=== PATIENT | male | born 1950 | race Caucasian/White ===

== ENCOUNTER → 2018-08-25 | Day surgery (SDC) | payer OTHER ==
[~2018-08-25] MED LIST: FLUOROURACIL IV; IV RINGERS,LACTATED 1000ML 1,000 ML IV SCH; LIDOCAINE 1% PF 2 ML VIAL. ONE; PROC10TA57 PO; PROPOFOL 20 ML IV ONE
[2018-08-25 13:50] VITALS: BP 175/60
--- NOTE | 2018-08-26 17:08 | PATHOLOGY ---
[facility] Accession Number: [id number] . 01 Material submitted: . RECTAL SIGMOID JUNCTION MASS . 01 Clinical history: . Screening . 02 Diagnosis: Colorectal biopsy, rectosigmoid junction mass: - ADENOCARCINOMA, MODERATELY DIFFERENTIATED, ULCERATED. SEE COMMENT. (JPM:pastora; 08/26/2018) QMS/08/26/2018 . 02 Comment: Sections of the rectosigmoid junction mass biopsy focally reveal malignant glands which infiltrate a reactive desmoplastic stroma. There is associated ulceration. 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 The case is also examined by Dr. Palomino, who concurs with the diagnosis. (JPM:pastora; 08/26/2018) . 02 Electronically signed: . Watson Moss MD, Pathologist NPI- [id number] . 01 Gross description: . Received in formalin labeled "[place], rectal sigmoid junction," are multiple segments of quezada soft tissue measuring 1.6 x 0.6 x 0.2 cm in aggregate dimensions. The specimen is filtered and entirely submitted in cassette A1. (TSD; 08/25/2018) TOB/TOB . 02 Pathologist provided ICD-10: C19 . 02 CPT . 321549 Specimen Comment: A courtesy copy of this report has been sent to Specimen Comment: [phone], . Specimen Comment: Report sent to and Specimen Comment: A duplicate report has been generated due to demographic updates. Performed at: [address], [place], [place] [id number] MD Reji Freeman MD Phone: [phone] Performed at: 02 [facility] [address] [place], [place] [id number] MD Watson Moss MD Phone: [phone]
== END | disposition home or self-care (01) ==
LOC: ENDOS 11:59
PROVIDERS: ATTEND Internal Medicine Gastroenterology
DX: C19 Malignant neoplasm of rectosigmoid junction (principal); K64.0 First degree hemorrhoids; Z72.89 Other problems related to lifestyle; Z87.891 Personal history of nicotine dependence
CPT/HCPCS: 45331; 88305; J2704

== ENCOUNTER → 2018-09-21 | Day surgery (SDC) | payer OTHER ==
[~2018-09-21] VITALS: Ht 172.7 cm; Wt 69.9 kg
[~2018-09-21] MED LIST changes: +BUPIVAC MPF-EPI 0.5%-1:200000 30 ML VIAL. ONE; +DEXAMETHASONE SOD PHOS 20 MG/5 ML VIAL. ONE; +HEPARIN SODIUM 5,000 UNIT in IV NORMAL SALINE 500ML BAG 500 ML IRR ONE; +HYDROmorphone 2 MG/ML VIAL IV PRN; +LIDOCAINE 1% PF 2 ML VIAL. ID PRN; -LIDOCAINE 1% PF 2 ML VIAL. ONE; +LIDOCAINE 2% PF 5 ML VIAL. ONE; +MIDAZOLAM HCL/PF 2 MG/2 ML VIAL. ONE; +MORPHINE SULFATE 2 MG/ML VIAL. IV PRN; +ONDANSETRON PF 4 MG/2 ML VIAL. IV PRN; +ONDANSETRON PF 4 MG/2 ML VIAL. ONE; +PROCHLORPERAZINE 10 MG/2 ML VIAL. IV PRN; +SEVOFLURANE 31 TO 60 MINUTES. IH ONE; +ceFAZolin 2GM PREMIX 2 GM/50 ML BAG IV ONE; +ePHEDrine PF IN SALINE 50 MG/10 ML SYRINGE. IV ONE; +fentaNYL PF VIAL 100 MCG/2 ML VIAL IV PRN; +fentaNYL PF VIAL 100 MCG/2 ML VIAL ONE
--- NOTE | 2018-09-21 08:58 | PDOC4 ---
Operative Note Operative Note Operative Note: Preoperative Diagnosis: Rectal cancer Postoperative Diagnosis: Same Procedure: Placement of Power Port-A-Cath using SonoSite guidance Surgeon: Colin Anesthesia: Gen. EBL: 10 mL Specimen: None Drains: None Complications: None Indication: The patient is a 67 year old male who was recently diagnosed with locally advanced rectal cancer. A request was made for placement of a Port-A- Cath to allow for chemotherapy treatment. The details and risks of the procedure were discussed. The risks include bleeding, infection, vessel injury, pneumothorax, pain, anesthetic risk, port, catheter or tubing malfunction or dysfunction, potential need for additional surgery or procedure. The patient understands and would like to proceed. Description: The patient was placed supine on the operating table and general anesthesia was performed. The bilateral neck and chest were prepped with ChloraPrep and draped in a standard surgical manner. With SonoSite ultrasound guidance the right internal jugular vein was readily identified and appeared patent. Entry was made into the vein with the skinny introducer needle under ultrasound guidance. The skinny guidewire passed readily into the central venous system. A small incision was made at the skin exit site. The skinny sheath was then placed over the guidewire. The larger guidewire was then placed within the sheath into the central venous system. Intraoperative fluoroscopy confirmed good position of the guidewire in the central venous system. The dilator and sheath were then placed over the guidewire. The catheter portion was then inserted into the central venous system and visualized using fluoroscopy. A separate right upper chest skin incision was made with a scalpel. A subcutaneous pocket was developed with cautery of sufficient size to accommodate the port. The catheter was then tunneled subcutaneously to the level of the newly formed pocket. Using fluoroscopy the catheter was positioned with the tip in the distal superior vena cava. The catheter was then cut and assembled to the port. The port was then secured to the chest wall with two 2-0 Prolene sutures. Using the Morelos needle the port readily aspirated and flushed without difficulty. Fluoroscopy confirmed good positioning of the catheter with no twists or kinks. The subcutaneous tissue was approximated with 3-0 Vicryl. The skin was then closed with 4-0 Monocryl. A sterile OpSite dressing was then applied. The patient tolerated the procedure well and was sent to the recovery room in stable condition. At the end of the case all counts were correct. BLANCA ADAMES MD Sep 21, 2018 08:58
--- NOTE | 2018-09-21 09:00 | DISCH ---
DISCHARGE INSTRUCTIONS Condition on Discharge Condition on Discharge: Stable Activity After Discharge Activity Instructions for Disc: Resume previous activity Diet after Discharge Diet after Discharge: Regular Wound Incision Care Wound/Incision Care: Other, see below (keep dressing clean and dry) Follow-Up Follow up with: Oncology appointment BLANCA ADAMES MD Sep 21, 2018 09:00
--- NOTE | 2018-09-21 09:52 | RAD ---
EXAM: Chest, single view. HISTORY: Portacatheter placement. COMPARISON: None. FINDINGS: A single view of the chest is obtained. There is a right chest wall port catheter with the tip in the superior cava. There is no pneumothorax. There is mild interstitial prominence without placido congestion or consolidation. No effusion is seen. The heart is normal in size. IMPRESSION: Right port catheter with the tip in the superior vena cava. Electronically signed by: Nicolette Salguero MD (09/21/2018 9:48 AM) [place] [id number]
[2018-09-21 10:19] VITALS: BP 126/68
== END | disposition home or self-care (01) ==
LOC: SURG 06:06
PROVIDERS: ATTEND Surgery
DX: Z45.2 Encounter for adjustment and management of vascular access device (principal); C20 Malignant neoplasm of rectum; Z79.899 Other long term (current) drug therapy; M10.9 Gout, unspecified; Z98.42 Cataract extraction status, left eye; Z98.41 Cataract extraction status, right eye; Z96.1 Presence of intraocular lens; F17.210 Nicotine dependence, cigarettes, uncomplicated; Z72.89 Other problems related to lifestyle; Z98.890 Other specified postprocedural states
CPT/HCPCS: 36561; 71045; 76937; 77001; C1788; J0171; J0696; J1100; J1644; J2001; J2250; J2405; J2704; J3010; J3490; J7040; J7120; 36556

== ENCOUNTER → 2018-10-04 | Outpatient (CLI) | payer OTHER ==
[2018-09-21 10:19] VITALS: BP 126/68
[~2018-10-04] MED LIST changes: -BUPIVAC MPF-EPI 0.5%-1:200000 30 ML VIAL. ONE; -DEXAMETHASONE SOD PHOS 20 MG/5 ML VIAL. ONE; -HEPARIN SODIUM 5,000 UNIT in IV NORMAL SALINE 500ML BAG 500 ML IRR ONE; -HYDROmorphone 2 MG/ML VIAL IV PRN; +IOHEXOL 300 MG/ML 100ML VIAL. IV ONE; -IV RINGERS,LACTATED 1000ML 1,000 ML IV SCH; -LIDOCAINE 1% PF 2 ML VIAL. ID PRN; -LIDOCAINE 2% PF 5 ML VIAL. ONE; -MIDAZOLAM HCL/PF 2 MG/2 ML VIAL. ONE; -MORPHINE SULFATE 2 MG/ML VIAL. IV PRN; -ONDANSETRON PF 4 MG/2 ML VIAL. IV PRN; -ONDANSETRON PF 4 MG/2 ML VIAL. ONE; -PROCHLORPERAZINE 10 MG/2 ML VIAL. IV PRN; -PROPOFOL 20 ML IV ONE; -SEVOFLURANE 31 TO 60 MINUTES. IH ONE; -ceFAZolin 2GM PREMIX 2 GM/50 ML BAG IV ONE; -ePHEDrine PF IN SALINE 50 MG/10 ML SYRINGE. IV ONE; -fentaNYL PF VIAL 100 MCG/2 ML VIAL IV PRN; -fentaNYL PF VIAL 100 MCG/2 ML VIAL ONE
--- NOTE | 2018-10-04 12:54 | RAD ---
CT study of the chest with contrast Clinical indications: Rectal cancer staging. TECHNIQUE: After IV infusion of 75 cc of Omnipaque 300, helical CT scanning of the chest was performed. PQRS compliance Statement One or more of the following individualized dose reduction techniques were utilized for this study: 1. Automated exposure control 2. Adjustment of the mA and/or kV according to patient size 3. Use of iterative reconstruction technique COMPARISON: None available. FINDINGS: No enlarged thoracic lymphadenopathy is evident. No focal aneurysmal dilatation or dissection of the thoracic aorta is seen. Heart size is normal and no pericardial effusion is seen. No pleural effusion or pneumothorax is evident. There is a calcified granuloma of the lateral aspect of the left lower lobe. On image 35 and series 2, there is a small 4 mm lung nodule within the lateral segment of the right middle lobe. No lung consolidation is evident. The proximal bronchial tree is patent. No lytic process is seen. No adrenal mass is evident. The abdomen was recently evaluated on a CT study dated September 01, 2018. IMPRESSION: No thoracic lymphadenopathy. There is a small 4 mm right middle lobe lung nodule. Given the patient's history, recommend a follow-up noncontrast chest CT in 3-4 months. This is indeterminate. No acute lung infiltrate is evident. Electronically signed by: Kishor Mccromack MD (10/04/2018 12:51 PM) [facility]
== END | disposition home or self-care (01) ==
LOC: CT 09:57
PROVIDERS: ATTEND Internal Medicine Hematology & Oncology
DX: R91.1 Solitary pulmonary nodule (principal); J84.10 Pulmonary fibrosis, unspecified; C20 Malignant neoplasm of rectum
CPT/HCPCS: 71260; Q9967; 77290; 77334; 77336; 77387; 77412

== ENCOUNTER 2019-01-11 07:03 | Inpatient (IN) | payer OTHER ==
[~2019-01-11] VITALS: Ht 172.7 cm; Wt 68.0 kg
[2019-01-11] VITALS (10 sets, daily range): BP systolic 116–163; BP diastolic 62–92
[~2019-01-11 07:03] MED LIST changes: +HYDROmorphone 2 MG/ML VIAL IV PRN; -IOHEXOL 300 MG/ML 100ML VIAL. IV ONE; +IV RINGERS,LACTATED 1000ML 1,000 ML IV SCH; +MORPHINE SULFATE 2 MG/ML VIAL. IV PRN; +ONDANSETRON PF 4 MG/2 ML VIAL. IV PRN; +PROCHLORPERAZINE 10 MG/2 ML VIAL. IV PRN; +fentaNYL PF VIAL 100 MCG/2 ML VIAL IV PRN
[2019-01-11] MEDS ORDERED: metroNIDAZOLE 500mg PREMIX 500 MG/100 ML BAG IV ONE (08:00)
[2019-01-11] MEDS ORDERED: ceFAZolin 2GM PREMIX 2 GM/50 ML BAG IV ONE (08:00)
[2019-01-11] MEDS ORDERED: PROPOFOL 20 ML IV ONE (08:09)
[2019-01-11] MEDS ORDERED: fentaNYL PF VIAL 250 MCG/5 ML VIAL ONE (08:09)
[2019-01-11] MEDS ORDERED: DEXAMETHASONE SOD PHOS 4 MG/ML VIAL ONE (08:11)
[2019-01-11] MEDS ORDERED: FAMOTIDINE 20 MG/2 ML VIAL ONE (08:11)
[2019-01-11] MEDS ORDERED: ONDANSETRON PF 4 MG/2 ML VIAL. ONE (08:11)
[2019-01-11] MEDS ORDERED: LIDOCAINE 2% PF 5 ML VIAL. ONE (08:11)
[2019-01-11] MEDS ORDERED: ROCURONIUM 100 MG/10 ML VIAL. ONE (08:12)
[2019-01-11] MEDS ORDERED: MIDAZOLAM HCL/PF 2 MG/2 ML VIAL. ONE (08:43)
[2019-01-11 08:54] LABS: HEMATOCRIT 40.4 % (39.0-53.0); HEMOGLOBIN 13.8 g/dL (13.0-17.5); RED BLOOD COUNT 4.11 x10^6/uL (4.30-5.70); RED CELL DISTRIBUTION WIDTH 14.5 % (11.5-14.5); WHITE BLOOD COUNT 6.3 x10^3/uL (4.0-11.0)
--- NOTE | 2019-01-11 09:17 | PDOC4 ---
OPERATIVE NOTE Date: Date: Jan 11, 2019 Pre-Op Diagnosis: rectal cancer Post-Op Diagnosis: same Procedure Performed: cysto, placement of ureteral caths Surgeon: Lorena Anesthesia Type: gen Blood Loss: min Specimans Obtained: neg Findings: nl bladder, bilobar obstr prostate Complications: neg Operative Note: cysto w 21 Fr cystoscope. Bladder unrem UO's in nl location 5 Fr whistle tipped caths passed thru each UO with no diff Scope removed. ureteral caths attached to carroll in usual fashion. NABILA VINSON MD Jan 11, 2019 09:17
[2019-01-11] MEDS ORDERED: GLYCOPYRROLATE 1 MG/5 ML VIAL. ONE (11:27)
[2019-01-11] MEDS ORDERED: NEOSTIGMINE METHYLSULFATE 5 MG/5 ML SYRINGE. ONE (11:27)
[2019-01-11] MEDS ORDERED: SUGAMMADEX SODIUM 200 MG/2 ML VIAL. IVP ONE (11:45)
[2019-01-11] MEDS ORDERED: fentaNYL PF VIAL 100 MCG/2 ML VIAL ONE ×3 (11:59→12:50)
[2019-01-11] MEDS ORDERED: NALOXONE 0.4 MG/ML VIAL. IV PRN (12:15)
[2019-01-11] MEDS ORDERED: ONDANSETRON PF 4 MG/2 ML VIAL. IV PRN (12:15)
[2019-01-11] MEDS ORDERED: 0.9 % SODIUM CHLORIDE 10 ML DISP.SYRIN. IV PRN (12:15)
--- NOTE | 2019-01-11 12:21 | PDOC4 ---
Operative Note Operative Note Operative Note: Preoperative Diagnosis: Rectal cancer Postoperative Diagnosis: Same Procedure: Low anterior resection, diverting loop ileostomy Surgeon: Colin Audio Tape Librarian: Angelina Fine Anesthesia: Gen. EBL: 25 mL Specimen: Proximal rectum to pathology Drains: Iesha drain to midline wound Complications: None Indication: The patient is a 68-year-old male who was recently diagnosed with rectal cancer. He completed neoadjuvant chemoradiation and is now ready to proceed with surgical treatment. The plan is to attempt a low anterior resection however he understands that an abdominal perineal resection is possible. He is also aware of the potential need for either a diverting loop ileostomy or permanent end colostomy. The risks of surgery were discussed which include bleeding, infection, visceral injury, pain, hernia formation, bowel injury, anesthetic risk, anastomotic leak, potential need for additional surgery or procedure. He understands and would like to proceed. Description: The patient was taken to the operating room where general anesthesia was performed. Ureteral stents were then placed by Dr. Cabrera. The patient was then maintained in lithotomy position. He was prepped and draped in a standard surgical manner. A lower vertical midline incision was made in the skin which was carried above the umbilicus. Cautery dissection was used to open the fashion peritoneum. The Omni retractor was used for the remainder of the case to facilitate exposure. The liver and stomach appeared unremarkable. The small bowel loops appeared normal. There was no evidence of omental or peritoneal abnormalities. In the proximal rectum there was a palpable mass consistent with the known tumor. We began with mobilization of the distal sigmoid colon and rectum. The lateral peritoneal attachments were divided with cautery. The distal sigmoid colon was then divided with a LEELA-75 stapling device. The mesorectum was then dissected. Blood vessels were ligated with 2-0 Vicryl and divided. Care was taken to ensure a complete mesorectal dissection. The LigaSure device assisted with this. The presacral plane was then developed posteriorly well beyond the tumor. Anteriorly the peritoneum was opened the rectum away from the bladder. We continued mobilizing circumferentially freeing the proximal and mid rectum. Both ureters were readily identified and preserved. The LigaSure device again assisted with rectal mobilization. The dissection was carried well beyond the tumor to the distal rectum. The rectum was divided distal to the tumor with a contour stapler, marked with a stitch at the proximal margin, and sent to pathology. Gross pathologic evaluation confirmed the mass present with good margins. An end-to-end anastomosis was then constructed using the EEA 28 mm stapling device. The anvil was placed into the distal sigmoid colon and secured using a pursestring device. The EEA was then inserted transanally by Dr. Mclain. The patient was brought out adjacent to the staple line on the rectum. The stapler was then assembled and deployed creating the anastomosis. Saline was placed in the pelvis and Dr. Mclain introduced air into the rectum to assess for any leak. There was no evidence of any air leak. Hemostasis was good and no other abnormalities were noted. A small circular incision was made in the right lower quadrant for planned diverting ileostomy. With cautery a cruciate incision was made in the fascia and a loop of the distal ileum was was delivered. The peritoneum was approximated with 0 Vicryl. The midline fascia was closed with 1 PDS in a running fashion. Subcutaneous tissue was closed over a Maynard drain in the midline wound with 3-0 Vicryl. The skin was then approximated with 4-0 Monoc ryl. The loop of ileum was then opened and matured to the skin creating a loop ileostomy with interrupted 3-0 Vicryl sutures. An ostomy appliance was placed and sterile dressing applied to the midline wound. The patient tolerated the procedure well and was sent to the recovery room in stable condition. At the end of the case all counts were correct. BLANCA ADAMES MD Jan 11, 2019 12:21
[2019-01-11] MEDS: fentaNYL PF VIAL 100 MCG/2 ML VIAL IV PRN ×2 (12:44→12:56)
[2019-01-11] MEDS: HYDROmorphone 12mg/30ml PCA 30 ML IV PRN (13:26)
[2019-01-11] MEDS ORDERED: BUPIVACAINE MPF 0.5% 30 ML VIAL. ONE (13:34)
[2019-01-11] MEDS ORDERED: DEXAMETHASONE SOD PHOS 20 MG/5 ML VIAL. ONE (13:34)
[2019-01-11] MEDS ORDERED: LIDOCAINE 1% PF 2 ML VIAL. ONE (13:34)
[2019-01-11] MEDS ORDERED: EPINEPHrine 1 MG/ML VIAL ONE (13:34)
[2019-01-11] MEDS: IV NORMAL SALINE 1000ML BAG 1,000 ML IV SCH (15:00)
--- NOTE | 2019-01-11 16:00 | NUR ---
pt arrived to unit at 1420 via bed in stable condition from PACU. pt is rating his pain 10/10 at this time. pt has sister at bedside and call light within reach. pt has [employer] TRACK pump and was re-educated on the use of it. pt is on 3LNC. pt is alert and oriented. carroll catheter is in place and putting out pink tinged urine. dressing is CDI with ileostomy just to the right of midline incision. ostomy putting out serosanguinous fluid. received report from LINDA Luna in PACU. will continue to monitor.
[2019-01-11] MEDS: POTASSIUM CL 20MEQ D5-0.45NACL 1,000 ML IV SCH (17:04)
[2019-01-11] MEDS: ENOXAPARIN 40 MG/0.4 ML SYRINGE. SQ SCH (22:00)
[2019-01-12] MEDS: POTASSIUM CL 20MEQ D5-0.45NACL 1,000 ML IV SCH ×3 (02:15→20:46)
[2019-01-12 03:00] VITALS: BP 130/66
--- NOTE | 2019-01-12 07:19 | NUR ---
Patient becoming irritable and restless. "when can I get rid of these tubes?" Co2 turned off per pt request as it keeps him awake. Patient also refused labs. "the dr didn't ask me." "I think I'm ready to go on home."
[2019-01-12 07:39] VITALS: BP 121/59
--- NOTE | 2019-01-12 09:33 | PDOC ---
EDUARDO LA APRN 01/12/19 0933: SURGICAL PROGRESS NOTE Subjective pain managed no emesis asking about when can eat and go home Vital Signs Vital Signs Date Time Temp Pulse Resp B/P (MAP) Pulse Ox O2 Delivery O2 Flow Rate FiO2 01/12/19 07:39 98.3 67 16 121/59 (79) 98 Nasal Cannula 3.0 98.3 I&O Intake and Output 01/12/19 06:59 Intake Total 1975 ml Output Total 1550 ml Balance 425 ml Intake Oral 0 ml IV Total 1000 ml Blood Product IV Normal Saline Flush 975 ml Output Urine Total 1500 ml Stool Total 0 ml Estimated Blood Loss 50 ml PATIENT HAS A CARROLL: Yes General: Alert, Oriented X3, Cooperative, No acute distress Abdomen: Soft, Other (dressing dry, stoma pink) Labs Laboratory Tests Test 01/11/19 07:50 White Blood Count 6.3 x10^3/uL (4.0-11.0) Red Blood Count 4.11 x10^6/uL (4.30-5.70) Hemoglobin 13.8 g/dL (13.0-17.5) Hematocrit 40.4 % (39.0-53.0) Mean Corpuscular Volume 98 fL (79-100) Mean Corpuscular Hemoglobin 34 pg (25-35) Mean Corpuscular Hemoglobin Concent 34 g/dL (31-37) Red Cell Distribution Width 14.5 % (11.5-14.5) Platelet Count 247 x10^3/uL (140-400) Assessment/Plan s/p LAR, diverting loop ileostomy await bowel function ambulate DC carroll tomorrow BLANCA ADAMES MD 01/12/19 1145: SURGICAL PROGRESS NOTE Assessment/Plan Agree with above EDUARDO LA APRN Jan 12, 2019 09:33 BLANCA ADAMES MD Jan 12, 2019 11:45
[2019-01-12 10:07] LABS: BASO % 0 % (0-3); EOS % 0 % (0-3); HEMATOCRIT 41.8 % (39.0-53.0); HEMOGLOBIN 13.9 g/dL (13.0-17.5); LYMPH # 0.4 x10^3/uL (1.0-4.8); LYMPH % 2 % (24-48); MEAN CORPUSCULAR HEMOGLOBIN 33 pg (25-35); MEAN CORPUSCULAR HGB CONC 33 g/dL (31-37); MEAN CORPUSCULAR VOLUME 99 fL (79-100); MONO # 1.1 x10^3/uL (0.0-1.1); MONO % 6 % (0-9); NEUT # 16.3 x10^3/uL (1.8-7.7); NEUT % 92 % (31-73); PLATELET COUNT 260 x10^3/uL (140-400); RED BLOOD COUNT 4.21 x10^6/uL (4.30-5.70); RED CELL DISTRIBUTION WIDTH 14.1 % (11.5-14.5); WHITE BLOOD COUNT 17.8 x10^3/uL (4.0-11.0)
[2019-01-12 10:20] LABS: CALCIUM 8.6 mg/dL (8.5-10.1); CREATININE 1.1 mg/dL (0.7-1.3); GFR 66.4
[2019-01-12 10:58] VITALS: BP 111/75
[2019-01-12 11:27] LABS: % BANDS 5 % (0-9); % BASOS 2 % (0-3); % LYMPHS 3 % (24-48); % MONOS 4 % (0-10); % SEGS 86 % (35-66); PLT ESTIMATE ADEQUATE (ADEQUATE)
--- NOTE | 2019-01-12 11:38 | NUR ---
Spoke with TALIA Avitia regarding request of removal of lines-carroll catheter & IVF, she will speak with Dr. Shaw
[2019-01-12] MEDS: IV NORMAL SALINE 1000ML BAG 1,000 ML IV SCH (15:00)
[2019-01-12 15:14] VITALS: BP 117/63
--- NOTE | 2019-01-12 17:35 | RAD ---
EXAM: Supine AP view of the abdomen DATE: 01/11/2019 12:00 AM INDICATION: Low anterior resection. COMPARISON: No Prior FINDINGS/ IMPRESSION: 1. Single AP view of the abdomen demonstrates anastomotic suture line in the lower pelvis. 2. Curvilinear density in the pelvis may represent PAVEL type drain or lap band or be overlying the patient. This can be correlated with surgical counts and repeat radiographs can be obtained as clinically indicated. Findings of possible retained lap sponge, drain or external, overlying structure in the pelvis discussed with patient's nurse Karen at 5:30 PM 01/12/2019 Electronically signed by: Brandon Wilkerson MD (01/12/2019 5:32 PM) [facility]
[2019-01-12 19:15] VITALS: BP 135/77
[2019-01-12] MEDS: ENOXAPARIN 40 MG/0.4 ML SYRINGE. SQ SCH (20:47)
[2019-01-12] MEDS: diphenhydrAMINE 50 MG/ML VIAL IVP PRN (22:04)
[2019-01-12 23:03] VITALS: BP 116/53
[2019-01-13 03:14] VITALS: BP 124/64
[2019-01-13] MEDS: POTASSIUM CL 20MEQ D5-0.45NACL 1,000 ML IV SCH ×2 (06:24→16:52)
[2019-01-13 07:00] VITALS: BP 122/65
--- NOTE | 2019-01-13 08:45 | PDOC ---
EDUARDO LA COMPENSATION VICE PRESIDENT 01/13/19 0844: SURGICAL PROGRESS NOTE Subjective had some RLQ pain this AM--improved now no n/v Vital Signs Vital Signs Date Time Temp Pulse Resp B/P (MAP) Pulse Ox O2 Delivery O2 Flow Rate FiO2 01/13/19 07:20 Room Air 01/13/19 07:00 98.7 72 18 122/65 (84) 94 98.7 01/12/19 07:39 3.0 I&O Intake and Output 01/13/19 06:59 Output Total 3350 ml Balance -3350 ml Output Urine Total 3350 ml PATIENT HAS A JAMESON: Yes (dc today) General: Alert, Oriented X3, Cooperative, No acute distress Abdomen: Soft, Other (incision c/d/i, no erythema, jose alejandro in place, ostomy with stool) Labs Laboratory Tests Test 01/12/19 09:45 White Blood Count 17.8 x10^3/uL (4.0-11.0) Red Blood Count 4.21 x10^6/uL (4.30-5.70) Hemoglobin 13.9 g/dL (13.0-17.5) Hematocrit 41.8 % (39.0-53.0) Mean Corpuscular Volume 99 fL (79-100) Mean Corpuscular Hemoglobin 33 pg (25-35) Mean Corpuscular Hemoglobin Concent 33 g/dL (31-37) Red Cell Distribution Width 14.1 % (11.5-14.5) Platelet Count 260 x10^3/uL (140-400) Neutrophils (%) (Auto) 92 % (31-73) Lymphocytes (%) (Auto) 2 % (24-48) Monocytes (%) (Auto) 6 % (0-9) Eosinophils (%) (Auto) 0 % (0-3) Basophils (%) (Auto) 0 % (0-3) Neutrophils # (Auto) 16.3 x10^3/uL (1.8-7.7) Lymphocytes # (Auto) 0.4 x10^3/uL (1.0-4.8) Monocytes # (Auto) 1.1 x10^3/uL (0.0-1.1) Eosinophils # (Auto) 0.0 x10^3/uL (0.0-0.7) Basophils # (Auto) 0.0 x10^3/uL (0.0-0.2) Segmented Neutrophils % 86 % (35-66) Band Neutrophils % 5 % (0-9) Lymphocytes % 3 % (24-48) Monocytes % 4 % (0-10) Basophils % 2 % (0-3) Platelet Estimate Adequate (ADEQUATE) Sodium Level 138 mmol/L (136-145) Potassium Level 4.0 mmol/L (3.5-5.1) Chloride Level 102 mmol/L (98-107) Carbon Dioxide Level 27 mmol/L (21-32) Anion Gap 9 (6-14) Blood Urea Nitrogen 9 mg/dL (8-26) Creatinine 1.1 mg/dL (0.7-1.3) Estimated GFR (Cockcroft-Gault) 66.4 Glucose Level 143 mg/dL (70-99) Calcium Level 8.6 mg/dL (8.5-10.1) Laboratory Tests Test 01/12/19 09:45 White Blood Count 17.8 x10^3/uL (4.0-11.0) Red Blood Count 4.21 x10^6/uL (4.30-5.70) Hemoglobin 13.9 g/dL (13.0-17.5) Hematocrit 41.8 % (39.0-53.0) Mean Corpuscular Volume 99 fL (79-100) Mean Corpuscular Hemoglobin 33 pg (25-35) Mean Corpuscular Hemoglobin Concent 33 g/dL (31-37) Red Cell Distribution Width 14.1 % (11.5-14.5) Platelet Count 260 x10^3/uL (140-400) Neutrophils (%) (Auto) 92 % (31-73) Lymphocytes (%) (Auto) 2 % (24-48) Monocytes (%) (Auto) 6 % (0-9) Eosinophils (%) (Auto) 0 % (0-3) Basophils (%) (Auto) 0 % (0-3) Neutrophils # (Auto) 16.3 x10^3/uL (1.8-7.7) Lymphocytes # (Auto) 0.4 x10^3/uL (1.0-4.8) Monocytes # (Auto) 1.1 x10^3/uL (0.0-1.1) Eosinophils # (Auto) 0.0 x10^3/uL (0.0-0.7) Basophils # (Auto) 0.0 x10^3/uL (0.0-0.2) Segmented Neutrophils % 86 % (35-66) Band Neutrophils % 5 % (0-9) Lymphocytes % 3 % (24-48) Monocytes % 4 % (0-10) Basophils % 2 % (0-3) Platelet Estimate Adequate (ADEQUATE) Sodium Level 138 mmol/L (136-145) Potassium Level 4.0 mmol/L (3.5-5.1) Chloride Level 102 mmol/L (98-107) Carbon Dioxide Level 27 mmol/L (21-32) Anion Gap 9 (6-14) Blood Urea Nitrogen 9 mg/dL (8-26) Creatinine 1.1 mg/dL (0.7-1.3) Estimated GFR (Cockcroft-Gault) 66.4 Glucose Level 143 mg/dL (70-99) Calcium Level 8.6 mg/dL (8.5-10.1) Assessment/Plan s/p LAR, diverting ileostomy some bowel function, will start clears BLANAC ADAMES MD 01/13/19 1250: SURGICAL PROGRESS NOTE Assessment/Plan Agree with above EDUARDO LA APRN Jan 13, 2019 08:44 BLANCA ADAMES MD Jan 13, 2019 12:50
[2019-01-13] MEDS: HYDROmorphone 12mg/30ml PCA 30 ML IV PRN (09:05)
--- NOTE | 2019-01-13 13:56 | NUR ---
SS following for discharge planning. SS reviewed pt chart. Pt is from home and is currently on room air. PT/OT recommending home with home healthcare at discharge. SS will continue to follow for discharge planning.
--- NOTE | 2019-01-13 14:45 | NUR ---
Wound/Ostomy Care Stopped by to set up pt's ostomy teaching for early next week, and upon assessment of current bag and stoma site, noticed stool leaking onto surgical incision and dressing, and onto gown. It was then decided that ostomy teaching would take place now, as the bag needed to be removed and pt stated he didn't need anyone else to go through the teaching with him, as he would be changing his own bags. Returned with supplies and Ostomy educational materials from [facility], assisted pt back into bed from chair. Education reviewed, including how to measure and cut the appliances, dietary modifications, skin care, etc. Current bag removed, skin cleaned with water and washcloths, and new ostomy bag cut to fit stoma. Periwound skin pink and intact, stoma is beefy red and protruding nicely, applied a 2 piece flat bag and appliance. Surgical dressing removed, incision cleaned, and distal incision with Arnett drain covered with gauze and tape. Pt agitated that he cannot walk around freely and asked why he was on a chair alarm. Assisted pt to restroom, then ambulated with pt in the halls and around his unit, assisted back to bed. Will f/u on Wednesday, and will enroll pt into [facility] at that time, as pt stated he may be moving next week. POC discussed with LINDA Rae.
[2019-01-13 15:00] VITALS: BP 103/55
[2019-01-13] MEDS: IV NORMAL SALINE 1000ML BAG 1,000 ML IV SCH (15:00)
[2019-01-13 19:00] VITALS: BP 121/68
[2019-01-13] MEDS: ENOXAPARIN 40 MG/0.4 ML SYRINGE. SQ SCH (22:27)
[2019-01-13 23:00] VITALS: BP 118/61
[2019-01-14 02:51] VITALS: BP_SYST 120; BP_SYST 127; BP_DIAS 68; BP_DIAS 73
[2019-01-14] MEDS: POTASSIUM CL 20MEQ D5-0.45NACL 1,000 ML IV SCH ×3 (02:52→23:53)
[2019-01-14 07:00] VITALS: BP 120/76
[2019-01-14 11:00] VITALS: BP 134/60
--- NOTE | 2019-01-14 13:08 | PDOC ---
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 Medications Current Medications Ondansetron HCl (Zofran) 4 mg PRN Q6HRS PRN IV NAUSEA/VOMITING; Start 01/11/19 at 07:00; Stop 01/11/19 at 21:00; Status DC Fentanyl Citrate (Fentanyl 2ml Vial) 25 mcg PRN Q5MIN PRN IV MILD PAIN 1-3; Start 01/11/19 at 07:00; Stop 01/11/19 at 21:00; Status DC Fentanyl Citrate (Fentanyl 2ml Vial) 50 mcg PRN Q5MIN PRN IV MODERATE TO SEVERE PAIN Last administered on 01/11/19at 12:56; Start 01/11/19 at 07:00; Stop 01/11/19 at 21:00; Status DC Morphine Sulfate (Morphine Sulfate) 1 mg PRN Q10MIN PRN IV SEVERE PAIN 7-10; Start 01/11/19 at 07:00; Stop 01/11/19 at 21:00; Status DC Ringer's Solution 1,000 ml @ 30 mls/hr Q24H IV Last administered on 01/11/19at 07:44; Start 01/11/19 at 07:00; Stop 01/11/19 at 18:59; Status DC Hydromorphone HCl (Dilaudid) 0.5 mg PRN Q10MIN PRN IV SEV PAIN, Second choice; Start 01/11/19 at 07:00; Stop 01/11/19 at 21:00; Status DC Prochlorperazine Edisylate (Compazine) 5 mg PACU PRN PRN IV NAUSEA, MRX1; Start 01/11/19 at 07:00; Stop 01/11/19 at 21:00; Status DC Metronidazole 100 ml @ 100 mls/hr 1X PREOP PRN IV PRE-OP; Start 01/11/19 at 07:48; Stop 01/11/19 at 15:00; Status DC Cefazolin Sodium/ Dextrose 50 ml @ 100 mls/hr 1X PREOP PRN IV PRE-OP; Start 01/11/19 at 07:48; Stop 01/11/19 at 15:00; Status DC Propofol 20 ml @ As Directed STK-MED ONCE IV ; Start 01/11/19 at 08:09; Stop 01/11/19 at 08:10; Status DC Fentanyl Citrate (Fentanyl 5ml Vial) 250 mcg STK-MED ONCE .ROUTE ; Start 01/11/19 at 08:09; Stop 01/11/19 at 08:10; Status DC Lidocaine HCl (Lidocaine Pf 2% Vial) 5 ml STK-MED ONCE .ROUTE ; Start 01/11/19 at 08:11; Stop 01/11/19 at 08:12; Status DC Dexamethasone Sodium Phosphate (Decadron) 4 mg STK-MED ONCE .ROUTE ; Start 01/11/19 at 08:11; Stop 01/11/19 at 08:12; Status DC Famotidine (Pepcid Vial) 20 mg STK-MED ONCE .ROUTE ; Start 01/11/19 at 08:11; Stop 01/11/19 at 08:12; Status DC Ondansetron HCl (Zofran) 4 mg STK-MED ONCE .ROUTE ; Start 01/11/19 at 08:11; Stop 01/11/19 at 08:12; Status DC Rocuronium [place] (Zemuron) 100 mg STK-MED ONCE .ROUTE ; Start 01/11/19 at 08:12; Stop 01/11/19 at 08:13; Status DC Midazolam HCl (Versed) 2 mg STK-MED ONCE .ROUTE ; Start 01/11/19 at 08:43; Stop 01/11/19 at 08:44; Status DC Neostigmine Methylsulfate (Neostigmine Methylsulfate) 5 mg STK-MED ONCE .ROUTE ; Start 01/11/19 at 11:27; Stop 01/11/19 at 11:28; Status DC Glycopyrrolate (Robinul) 1 mg STK-MED ONCE .ROUTE ; Start 01/11/19 at 11:27; Stop 01/11/19 at 11:28; Status DC Sugammadex Sodium (Bridion) 200 mg 1X ONCE IVP ; Start 01/11/19 at 11:45; Stop 01/11/19 at 11:46; Status DC Fentanyl Citrate (Fentanyl 2ml Vial) 100 mcg STK-MED ONCE .ROUTE ; Start 01/11/19 at 11:59; Stop 01/11/19 at 12:00; Status DC Fentanyl Citrate (Fentanyl 2ml Vial) 100 mcg STK-MED ONCE .ROUTE ; Start 01/11/19 at 12:00; Stop 01/11/19 at 12:01; Status DC Enoxaparin Sodium (Lovenox 40mg Syringe) 40 mg Q24H SQ Last administered on 01/13/19at 22:27; Start 01/11/19 at 22:00 Sodium Chloride (Normal Saline Flush) 3 ml QSHIFT PRN IV AFTER MEDS AND BLOOD DRAWS; Start 01/11/19 at 12:15 Potassium Chloride/Dextrose/ Sod Cl 1,000 ml @ 100 mls/hr Q10H IV Last administered on 01/14/19at 02:52; Start 01/11/19 at 15:00 Naloxone HCl (Narcan) 0.4 mg PRN Q2MIN PRN IV SEE INSTRUCTIONS; Start 01/11/19 at 12:15 Sodium Chloride 1,000 ml @ 25 mls/hr Q24H IV ; Start 01/11/19 at 15:00 Hydromorphone HCl 30 ml @ 0 mls/hr CONT PRN PRN IV PER PROTOCOL Last administered on 01/13/19at 09:05; Start 01/11/19 at 12:30 Ondansetron HCl (Zofran) 4 mg PRN Q6HRS PRN IV NAUESA, 1ST CHOICE Last administered on 01/11/19at 15:15; Start 01/11/19 at 12:15 Fentanyl Citrate (Fentanyl 2ml Vial) 100 mcg STK-MED ONCE .ROUTE ; Start 01/11/19 at 12:50; Stop 01/11/19 at 12:51; Status DC Dexamethasone Sodium Phosphate (Decadron) 20 mg STK-MED ONCE .ROUTE ; Start 01/11/19 at 13:34; Stop 01/11/19 at 13:35; Status DC Bupivacaine HCl (Sensorcaine Mpf 0.5%) 30 ml STK-MED ONCE .ROUTE ; Start 01/11/19 at 13:34; Stop 01/11/19 at 13:35; Status DC Epinephrine HCl (Adrenalin) 1 mg STK-MED ONCE .ROUTE ; Start 01/11/19 at 13:34; Stop 01/11/19 at 13:35; Status DC Lidocaine HCl (Xylocaine-Mpf 1% 2ml Vial) 2 ml STK-MED ONCE .ROUTE ; Start 01/11/19 at 13:34; Stop 01/11/19 at 13:35; Status DC Metronidazole (FLAGYL 500Mmg PREMIX) 500 mg STK-MED ONCE IV ; Start 01/11/19 at 08:00; Stop 01/12/19 at 08:16; Status DC Cefazolin Sodium/ Dextrose (Ancef 2gm Premix) 2 gm STK-MED ONCE IV ; Start 01/11/19 at 08:00; Stop 01/12/19 at 12:10; Status DC Diphenhydramine HCl (Benadryl) 12.5 mg PRN Q6HRS PRN IVP ITCHING Last administered on 01/12/19at 22:04; Start 01/12/19 at 21:00 Active Scripts Active Reported Compazine (Prochlorperazine Maleate) 10 Mg Tablet 10 Mg PO Q6HRS PRN Vitals/I & O Vital Sign - Last 24 Hours 01/13/19 01/13/19 01/13/19 01/13/19 15:00 19:00 20:00 23:00 Temp 98.9 97.8 98.2 98.9 97.8 98.2 Pulse 74 73 66 Resp 18 18 18 B/P (MAP) 103/55 (71) 121/68 (85) 118/61 (80) Pulse Ox 95 93 94 O2 Delivery Room Air Room Air Room Air Room Air 01/14/19 01/14/19 01/14/19 02:51 07:00 11:00 Temp 97.7 98.1 98.7 97.7 98.1 98.7 Pulse 75 71 75 Resp 16 16 18 B/P (MAP) 120/68 (85) 120/76 (91) 134/60 (84) Pulse Ox 93 97 98 O2 Delivery Room Air Room Air Room Air Intake and Output 01/13/19 01/13/19 01/14/19 15:00 23:00 07:00 Intake Total 200 ml Output Total 500 ml Balance -300 ml BLANCA ADAMES MD Jan 14, 2019 13:08
[2019-01-14] MEDS: IV NORMAL SALINE 1000ML BAG 1,000 ML IV SCH (15:00)
[2019-01-14 19:00] VITALS: BP 111/59
[2019-01-14] MEDS: diphenhydrAMINE 50 MG/ML VIAL IVP PRN (20:35)
[2019-01-14] MEDS: ENOXAPARIN 40 MG/0.4 ML SYRINGE. SQ SCH (20:35)
[2019-01-14 23:00] VITALS: BP 131/67
[2019-01-15 02:54] VITALS: BP 115/82
[2019-01-15 07:00] VITALS: BP 124/58
--- NOTE | 2019-01-15 09:14 | PDOC ---
PROGRESS NOTES Subjective Subjective struggling emotionally with being in the hospital; physically doing well Objective Objective Vital Signs Date Time Temp Pulse Resp B/P (MAP) Pulse Ox O2 Delivery O2 Flow Rate FiO2 01/15/19 08:00 Room Air 01/15/19 07:00 98.0 56 16 124/58 (80) 96 98.0 01/14/19 20:01 3.0 Intake and Output 01/15/19 06:59 Intake Total 240 ml Output Total 50 ml Balance 190 ml Intake Oral 240 ml Stool Total 50 ml # Voids 5 Physical Exam Abdomen: Soft (robust ileostomy output) Assessment Assessment S/P LAR, loop ileostomy Plan Plan of Care advance diet, PO pain meds, DC sr. manager corporate communications Comment Review of Relevant I have reviewed the following items abigail (where applicable) has been applied. Medications Current Medications Ondansetron HCl (Zofran) 4 mg PRN Q6HRS PRN IV NAUSEA/VOMITING; Start 01/11/19 at 07:00; Stop 01/11/19 at 21:00; Status DC Fentanyl Citrate (Fentanyl 2ml Vial) 25 mcg PRN Q5MIN PRN IV MILD PAIN 1-3; Start 01/11/19 at 07:00; Stop 01/11/19 at 21:00; Status DC Fentanyl Citrate (Fentanyl 2ml Vial) 50 mcg PRN Q5MIN PRN IV MODERATE TO SEVERE PAIN Last administered on 01/11/19at 12:56; Start 01/11/19 at 07:00; Stop 01/11/19 at 21:00; Status DC Morphine Sulfate (Morphine Sulfate) 1 mg PRN Q10MIN PRN IV SEVERE PAIN 7-10; Start 01/11/19 at 07:00; Stop 01/11/19 at 21:00; Status DC Ringer's Solution 1,000 ml @ 30 mls/hr Q24H IV Last administered on 01/11/19at 07:44; Start 01/11/19 at 07:00; Stop 01/11/19 at 18:59; Status DC Hydromorphone HCl (Dilaudid) 0.5 mg PRN Q10MIN PRN IV SEV PAIN, Second choice; Start 01/11/19 at 07:00; Stop 01/11/19 at 21:00; Status DC Prochlorperazine Edisylate (Compazine) 5 mg PACU PRN PRN IV NAUSEA, MRX1; Start 01/11/19 at 07:00; Stop 01/11/19 at 21:00; Status DC Metronidazole 100 ml @ 100 mls/hr 1X PREOP PRN IV PRE-OP; Start 01/11/19 at 07:48; Stop 01/11/19 at 15:00; Status DC Cefazolin Sodium/ Dextrose 50 ml @ 100 mls/hr 1X PREOP PRN IV PRE-OP; Start 01/11/19 at 07:48; Stop 01/11/19 at 15:00; Status DC Propofol 20 ml @ As Directed STK-MED ONCE IV ; Start 01/11/19 at 08:09; Stop 01/11/19 at 08:10; Status DC Fentanyl Citrate (Fentanyl 5ml Vial) 250 mcg STK-MED ONCE .ROUTE ; Start 01/11/19 at 08:09; Stop 01/11/19 at 08:10; Status DC Lidocaine HCl (Lidocaine Pf 2% Vial) 5 ml STK-MED ONCE .ROUTE ; Start 01/11/19 at 08:11; Stop 01/11/19 at 08:12; Status DC Dexamethasone Sodium Phosphate (Decadron) 4 mg STK-MED ONCE .ROUTE ; Start 01/11/19 at 08:11; Stop 01/11/19 at 08:12; Status DC Famotidine (Pepcid Vial) 20 mg STK-MED ONCE .ROUTE ; Start 01/11/19 at 08:11; Stop 01/11/19 at 08:12; Status DC Ondansetron HCl (Zofran) 4 mg STK-MED ONCE .ROUTE ; Start 01/11/19 at 08:11; Stop 01/11/19 at 08:12; Status DC Rocuronium [place] (Zemuron) 100 mg STK-MED ONCE .ROUTE ; Start 01/11/19 at 08:12; Stop 01/11/19 at 08:13; Status DC Midazolam HCl (Versed) 2 mg STK-MED ONCE .ROUTE ; Start 01/11/19 at 08:43; Stop 01/11/19 at 08:44; Status DC Neostigmine Methylsulfate (Neostigmine Methylsulfate) 5 mg STK-MED ONCE .ROUTE ; Start 01/11/19 at 11:27; Stop 01/11/19 at 11:28; Status DC Glycopyrrolate (Robinul) 1 mg STK-MED ONCE .ROUTE ; Start 01/11/19 at 11:27; Stop 01/11/19 at 11:28; Status DC Sugammadex Sodium (Bridion) 200 mg 1X ONCE IVP ; Start 01/11/19 at 11:45; Stop 01/11/19 at 11:46; Status DC Fentanyl Citrate (Fentanyl 2ml Vial) 100 mcg STK-MED ONCE .ROUTE ; Start 01/11/19 at 11:59; Stop 01/11/19 at 12:00; Status DC Fentanyl Citrate (Fentanyl 2ml Vial) 100 mcg STK-MED ONCE .ROUTE ; Start 01/11/19 at 12:00; Stop 01/11/19 at 12:01; Status DC Enoxaparin Sodium (Lovenox 40mg Syringe) 40 mg Q24H SQ Last administered on 01/14/19at 20:35; Start 01/11/19 at 22:00 Sodium Chloride (Normal Saline Flush) 3 ml QSHIFT PRN IV AFTER MEDS AND BLOOD DRAWS; Start 01/11/19 at 12:15 Potassium Chloride/Dextrose/ Sod Cl 1,000 ml @ 100 mls/hr Q10H IV Last administered on 01/14/19at 23:53; Start 01/11/19 at 15:00 Naloxone HCl (Narcan) 0.4 mg PRN Q2MIN PRN IV SEE INSTRUCTIONS; Start 01/11/19 at 12:15 Sodium Chloride 1,000 ml @ 25 mls/hr Q24H IV ; Start 01/11/19 at 15:00 Hydromorphone HCl 30 ml @ 0 mls/hr CONT PRN PRN IV PER PROTOCOL Last administered on 01/13/19at 09:05; Start 01/11/19 at 12:30 Ondansetron HCl (Zofran) 4 mg PRN Q6HRS PRN IV NAUESA, 1ST CHOICE Last administered on 01/11/19at 15:15; Start 01/11/19 at 12:15 Fentanyl Citrate (Fentanyl 2ml Vial) 100 mcg STK-MED ONCE .ROUTE ; Start 01/11/19 at 12:50; Stop 01/11/19 at 12:51; Status DC Dexamethasone Sodium Phosphate (Decadron) 20 mg STK-MED ONCE .ROUTE ; Start 01/11/19 at 13:34; Stop 01/11/19 at 13:35; Status DC Bupivacaine HCl (Sensorcaine Mpf 0.5%) 30 ml STK-MED ONCE .ROUTE ; Start 01/11/19 at 13:34; Stop 01/11/19 at 13:35; Status DC Epinephrine HCl (Adrenalin) 1 mg STK-MED ONCE .ROUTE ; Start 01/11/19 at 13:34; Stop 01/11/19 at 13:35; Status DC Lidocaine HCl (Xylocaine-Mpf 1% 2ml Vial) 2 ml STK-MED ONCE .ROUTE ; Start 01/11/19 at 13:34; Stop 01/11/19 at 13:35; Status DC Metronidazole (FLAGYL 500Mmg PREMIX) 500 mg STK-MED ONCE IV ; Start 01/11/19 at 08:00; Stop 01/12/19 at 08:16; Status DC Cefazolin Sodium/ Dextrose (Ancef 2gm Premix) 2 gm STK-MED ONCE IV ; Start 01/11/19 at 08:00; Stop 01/12/19 at 12:10; Status DC Diphenhydramine HCl (Benadryl) 12.5 mg PRN Q6HRS PRN IVP ITCHING Last administered on 01/14/19at 20:35; Start 01/12/19 at 21:00 Active Scripts Active Reported Compazine (Prochlorperazine Maleate) 10 Mg Tablet 10 Mg PO Q6HRS PRN Vitals/I & O Vital Sign - Last 24 Hours 01/14/19 01/14/19 01/14/19 01/14/19 11:00 19:00 20:01 23:00 Temp 98.7 98.3 97.8 98.7 98.3 97.8 Pulse 75 78 96 Resp 18 18 18 B/P (MAP) 134/60 (84) 111/59 (76) 131/67 (88) Pulse Ox 98 95 97 O2 Delivery Room Air Room Air Room Air Room Air O2 Flow Rate 3.0 01/15/19 01/15/19 01/15/19 02:54 07:00 08:00 Temp 98.3 98.0 98.3 98.0 Pulse 83 56 Resp 18 16 B/P (MAP) 115/82 (93) 124/58 (80) Pulse Ox 95 96 O2 Delivery Room Air Room Air Room Air Intake and Output 01/14/19 01/14/19 01/15/19 14:59 22:59 06:59 Intake Total 120 ml 120 ml Output Total 50 ml Balance 120 ml 70 ml BLANCA ADAMES MD Jan 15, 2019 09:14
[2019-01-15] MEDS: POTASSIUM CL 20MEQ D5-0.45NACL 1,000 ML IV SCH (10:09)
[2019-01-15] MEDS: HYDROcodone/APAP 5/325MG 1 TAB TABLET PO PRN ×2 (10:10→19:02)
[2019-01-15 11:00] VITALS: BP 110/68
[2019-01-15 15:00] VITALS: BP 107/59
[2019-01-15] MEDS: IV NORMAL SALINE 1000ML BAG 1,000 ML IV SCH (15:00)
[2019-01-15 19:00] VITALS: BP 116/64
[2019-01-15] MEDS: ENOXAPARIN 40 MG/0.4 ML SYRINGE. SQ SCH (22:04)
[2019-01-15 23:00] VITALS: BP 87/47
[2019-01-16 03:10] VITALS: BP 105/57
[2019-01-16] MEDS: POTASSIUM CL 20MEQ D5-0.45NACL 1,000 ML IV SCH (04:45)
[2019-01-16] MEDS: HYDROcodone/APAP 5/325MG 1 TAB TABLET PO PRN ×3 (06:20→19:57)
[2019-01-16 07:00] VITALS: BP 90/60
[2019-01-16] MEDS ORDERED: HYDR-2761 PO (08:43)
--- NOTE | 2019-01-16 08:50 | SNU/HH DC ---
DISCHARGE WITH HOME HEALTH DISCHARGE INFORMATION: Condition on Discharge: Stable HOME HEALTH: Face to Face: I certify this patient is under my care and that I, or a nurse practitioner or physician's behavioral modification assistant working with me, had a face to face encounter that meets the physician face to face encounter requirements with this patient on []. Medical Complications: Other (s/p LAR, ostomy for cancer) RN For Eval/Treatment: Yes Physical Therapy For: Evalulation/Treatment Occupational Therapy For: Evaluation/Treatment Home Health Aide For: Self-care Pt Meets Homebound Status: Unsteady balance w/ amb,, Fatigue w/ amb., Limited distance walking, Other: (new ostomy, recent surgery decreased strength and activity ) POST DISCHARGE ORDERS: Activity Instructions for Disc: Progressive ambulation, Other, see below (ambulate as tolerated, no driving, no lifting > 20 lbs) Bathing Instructions: Shower-keep dressing dry (no tub baths, soaking ) Wound/Incision Care: Other, see below (can leave incision uncovered, ok to shower, ostomy care ) FOLLOW-UP: Follow up with: Dr Shaw 2 weeks, call to schedule [phone] CERTIFICATION STATEMENT: Certification Statement: Certification Statement: Based on the above finding, I certify that this patient is confined to the home and needs intermittent prison care, physical therapy and/or speech therapy, or continues to need occupational therapy.~ This patient is under my care, and I have initiated the establishment of the plan of care.~ This patient will be followed by myself or a community physician who will periodically review the plan of care. Home Meds Active Scripts Hydrocodone Bit/Acetaminophen (HYDROCODONE-APAP 5-325 ) 1 Tab Tablet, 2 TAB PO PRN Q4HRS PRN for MODERATE PAIN, SEVERE PAIN, #30 TAB 0 Refills Prov:EDUARDO LA AGENT LICENSING CLERK 01/16/19 Discontinued Reported Medications Prochlorperazine Maleate (Compazine) 10 Mg Tablet, 10 MG PO Q6HRS PRN for NAUSEA/VOMITING 10/31/18 EDUARDO LA AGENT LICENSING CLERK Jan 16, 2019 08:50
--- NOTE | 2019-01-16 08:55 | PDOC ---
SURGICAL PROGRESS NOTE Subjective tolerating diet no n/v does not like food here pain managed Vital Signs Vital Signs Date Time Temp Pulse Resp B/P (MAP) Pulse Ox O2 Delivery O2 Flow Rate FiO2 01/16/19 08:00 Room Air 01/16/19 07:00 98.5 55 14 90/60 (70) 95 98.5 I&O Intake and Output 01/16/19 06:59 Intake Total 1620 ml Output Total 900 ml Balance 720 ml Intake Oral 1620 ml Output Urine Total 500 ml Stool Total 400 ml # Voids 4 General: Alert, Oriented X3, Cooperative, No acute distress Abdomen: Soft, Other (ostomy with stool, incision c/d/i, no erythema, jose alejandro in place) Assessment/Plan s/p LAR, diverting ileostomy advance to soft diet DC planning for HH possible home today or in AM wound care to do further teaching today EDUARDO LA APRN Jan 16, 2019 08:55
[2019-01-16] MEDS: IV NORMAL SALINE 1000ML BAG 1,000 ML IV SCH (10:35)
[2019-01-16 11:00] VITALS: BP 88/56
[2019-01-16 15:00] VITALS: BP 131/66
--- NOTE | 2019-01-16 15:08 | NUR ---
SS following up with discharge planning. Orders for home healthcare received. Pt has [facility]. SS phoned and faxed referral and orders for home healthcare to [facility], ; fax [phone]. Pt's RN notified.
[2019-01-16] MEDS ORDERED: HEPARIN PF 500 UNIT/5 ML DISP.SYRIN. IV ONE (17:30)
--- NOTE | 2019-01-16 17:40 | NUR ---
Wound/Ostomy Care Stopped by for follow up ostomy teaching, and upon assessment of current bag and stoma site, noticed stool leaking onto surgical incision and dressing, and onto gown. Assisted pt back into bed from chair. Education reviewed, including the importance of changing appliance if bag was leaking, d/t the caustic stool. Reviewed how to measure and cut the appliances, dietary modifications, skin care, etc. Current bag removed, skin cleaned with water and washcloths, and new ostomy bag cut to fit stoma. Periwound skin red and irritated, intact, stoma is beefy red and protruding nicely, applied strips of ostomy ring to abdominal skin folds where leakage may have occured, then applied a 2 piece flat bag and appliance, Ceraplus flange will help resolve peristomal irritation. Surgical dressing removed, incision cleaned, and distal incision with Iesha drain covered with gauze and tape. Will enroll pt into [employer] [facility] start at this time, pt given a few Ostomy bags for discharge home, until pt receives supplies from [employer]. POC discussed with LINDA Cross.
[2019-01-16 19:00] VITALS: BP 107/70
--- NOTE | 2019-01-16 19:18 | RAD ---
Exam: Abdomen one view INDICATION: Removal of Iesha drain TECHNIQUE: Frontal view of the abdomen Comparisons: 01/11/2019 FINDINGS: Multiple air-filled distended loops of large and small bowel are noted in the abdomen. Surgical suture material noted at the midline lower pelvis. There is been interval removal of Minto drain. Ostomy noted in the right lower quadrant. No suspicious masses or calcifications. IMPRESSION: 1. Interval removal of Iesha drain. 2. Air filled dilated loops of large and small bowel overall slightly more prominent when compared to the most recent prior exam, may relate to ileus versus developing obstruction. Continued radiographic follow-up is recommended. Electronically signed by: Harjinder Gilliam MD (01/16/2019 7:15 PM) [facility]
--- NOTE | 2019-01-16 22:56 | NUR ---
Pt was given all discharge instructions, teaching and new prescriptions. Pt KUB came back and was reported to Dr. Shaw, pain medicine given before discharge. Port access was removed per protocol. Pt is stable. Alert x4, sister at bedside. Took supplies home for new ostomy care, Pt will follow up with surgery and home health. Pt left at 2030. Pt was taken via wheelchair to vehicle escorted by [facility]. All belongings left with pt.
--- NOTE | 2019-01-17 11:23 | PDOC3 ---
Discharge Summary Visit Information Date of Admission: Jan 11, 2019 Date of Discharge: Jan 16, 2019 Admitting Diagnosis: rectal cancer Final Diagnosis rectal cancer Brief Hospital Course Allergies Allergies Coded Allergies Type Severity Reaction Last Updated Verified No Known Drug Allergies 01/11/19 No Vital Signs Vital Signs Date Time Temp Pulse Resp B/P (MAP) Pulse Ox O2 Delivery O2 Flow Rate FiO2 01/16/19 19:57 97 Room Air 01/16/19 19:00 98.6 89 14 107/70 (82) 98.6 Brief Hospital Course Mr. Prince is a 68 old male who underwent Low anterior resection, diverting loop ileostomy. Postoperatively bowel function slowly returned. At discharge tolerating diet, ambulating, pain managed, and ostomy care understanding. Discharging with home health assistance Discharge Information Condition at Discharge: Stable Follow Up: Weeks (2) Disposition/Orders: D/C to Home w/ HH Scheduled PRN Hydrocodone Bit/Acetaminophen (Hydrocodone-Apap 5-325 ) 1 Tab Tablet, 2 TAB PO PRN Q4HRS PRN for MODERATE PAIN, SEVERE PAIN, #30 Ref 0 Prescribed by: Eduardo Owens on 01/16/19 0843 Discontinued Medications Prochlorperazine Maleate (Compazine) 10 Mg Tablet, 10 MG PO Q6HRS PRN for NAUSEA/VOMITING, (Reported) Entered as Reported by: YOLANDA BECERRA on 10/31/18 0856 Last Action: Reviewed on 01/11/19 0734 by EDUARDO CUELLAR APRN Jan 17, 2019 11:23
--- NOTE | 2019-01-17 16:06 | PATHOLOGY ---
[facility] Accession Number: [id number] . 01 Material submitted: . PART A: rectum - PROXIMAL RECTUM. Modifiers: proximal PART B: colon - PROXIMAL MARGIN COLON. Modifiers: proximal PART C: colon - DISTAL DONUT. Modifiers: distal PART D: colon - PROXIMAL DONUT. Modifiers: proximal . 01 Clinical history: . Rectal cancer . 02 Frozen section diagnosis: . INTRAOPERATIVE CONSULTATION WITH GROSS IMPRESSION: (Watson Moss MD) . A. Segment of distal sigmoid colon and proximal rectum with attached mesocolon/mesorectum, segmental resection: - Narrowed and indurated area of erythema of the mucosa in the region of the rectosigmoid junction - margins of resection grossly free of neoplasm. . The results are displayed to Dr. Shaw in the operating room. The specimen is fixed in formalin prior to additional sectioning. . Intraoperative consultation performed at [facility], [address] [place] [address]. . . INTRAOPERATIVE GROSS DESCRIPTION: A. The specimen is received fresh for intraoperative consultation and is designated "proximal rectum stitch at proximal margin". This consists of a segment of distal sigmoid colon and rectum with attached mesocolon/mesorectum. The specimen is stapled closed at both ends. There is a suture attached to the proximal end. The segment measures approximately 13 cm in length. The peritoneal reflection is approximately 5 cm from the distal margin and is slightly puckered. The antimesocolic serosa is pinkish brown and glistening. Distally, the specimen measures up to 8 cm in width. The puckered area of the peritoneal reflection is inked with black ink. The segment is open along the antimesocolic aspect. Beginning approximately 2.8 cm from the distal margin, there is a segmental area of narrowing of the colon with erythema and slight nodularity of the mucosa, measuring approximately 5.5 cm in length. The beginning of this area is approximately 3.5 cm from the proximal margin. There is induration of the wall of the colon in this area. There is a small pinkish polyp at the distal end of this area measuring up to 0.4 cm. The mucosa proximal to the area of narrowing is pinkish canseco and transversely folded. The mucosa distal to the area of narrowing is yellowish quezada. The margins of resection are grossly free of neoplasm. (JPM:pastora; 01/11/2019) JMP/MBR . 02 Diagnosis: A. Segment of distal sigmoid colon and proximal rectum with attached mesocolon/mesorectum, segmental resection: - FOCAL RESIDUAL INVASIVE COLORECTAL ADENOCARCINOMA, MODERATELY DIFFERENTIATED, RECTOSIGMOID JUNCTION, PRIMARILY INVOLVING THE MUSCULARIS PROPRIA AND ADJACENT PERICOLIC/MESORECTAL SOFT TISSUE. - Six mesocolic/mesorectal lymph nodes negative for tumor. - Proximal, distal, and circumferential radial mesocolic/mesorectal margins of resection negative for tumor. - Radiation proctitis/colitis with mucosal ulceration and with submucosal, muscular wall, and mesocolic/mesorectal fibrosis. - Hyperplastic polyp of rectum. . B. Segment of colon, proximal margin: - Negative for tumor. . C. Segment of rectum, distal donut: - Negative for tumor. . D. Segment of colon, proximal donut: - Negative for tumor. (JPM/db/mml; 01/13/2019) . . . Surgical Pathology Cancer Case Summary . . COLON AND RECTUM: Resection, Including Transanal Disk Excision of Rectal Neoplasms . . Procedure ___ Other (specify): Distal sigmoid and proximal rectum resection . Tumor Site ___ Rectosigmoid region . + Tumor Location + ___ Straddles the anterior peritoneal reflection . Tumor Size Greatest dimension (centimeters): Approximately 5.5 cm . Macroscopic Tumor Perforation ___ Not identified . . + Macroscopic Intactness of Mesorectum + ___ Complete . Histologic Type ___ Adenocarcinoma . . Histologic Grade ___ G2: Moderately differentiated . Tumor Extension ___ Tumor invades through the muscularis propria into pericolorectal tissue . Margins ___ All margins are uninvolved by invasive carcinoma, high-grade dysplasia, intramucosal adenocarcinoma, and adenoma Margins examined: Proximal, distal, and circumferential radial margins + Distance of invasive carcinoma from closest margin (millimeters or centimeters): Approximately 2.8 cm. + Specify closest margin: Deep margin . Treatment Effect ___ Present + ___ Residual cancer with evident tumor regression, but more than single cells or rare small groups of cancer cells (partial response, score 2) . . Lymphovascular Invasion ___ Not identified . Perineural Invasion ___ Not identified . + Type of Polyp in Which Invasive Carcinoma Arose + ___ None identified . Tumor Deposits ___ Not identified . Regional Lymph Nodes Number of Lymph Nodes Involved: 0 Number of Lymph Nodes Examined: 6 . Pathologic Stage Classification (pTNM, AJCC 8th Edition) . TNM Descriptors ___ y (posttreatment) . Primary Tumor (pT) ___ pT3:Tumor invades through the muscularis propria into pericolorectal tissues . Regional Lymph Nodes (pN) ___ pN0:No regional lymph node metastasis . + Additional Pathologic Findings + ___ Other (specify): Radiation colitis/proctitis . (JPM:mm; 01/17/2019) LBQ/01/17/2019 . 02 Comment: There is focal residual invasive colorectal adenocarcinoma in the region of the rectosigmoid junction, primarily involving the muscularis propria and adjacent pericolic/mesorectal soft tissues. There is significant treatment effect present with evident tumor regression. The margins of excision are free of neoplasm. There are no lymph node metastasis. . (JPM:mm; 01/17/2019) . 02 Electronically signed: . Watson Moss MD, Pathologist NPI- [id number] . 01 Gross description: . A. Please see gross description dictated by the pathologist located under the Frozen Section part of this report. . A. The peritoneal reflection is inked blue. Sectioning through the lesion reveals a fibrous thickened muscular wall with no gross evidence of invasion into the wall. The mesocolon/mesorectum is placed in clearing solution to reveal multiple lymph node candidates measuring between 0.1 and 0.4 cm. Fibreglass Laminator sections are submitted as follows: . A1: Distal margin A2: Proximal margin A3-A13: Entire area of nodularity/erythema A14: Additional distal polyp A15: 5 intact lymph node candidates A16: 5 intact lymph node candidates A17-A19: Lymphovascular bundles . B. The specimen is received in formalin, labeled "Suresh, Kit, proximal margin colon" and consists of a segment of intestinal tissue closed with a line of linear maddison measuring 3.0 x 1.7 x 0.8 cm. A electronics parts sales representative section is submitted in B1. . C. The specimen is received in formalin, labeled "Suresh, Kit, distal donut" and consists of a "donut" displaying bulging quezada mucosa measuring 2.5 x 2.0 x 1.1 cm. No lesions are identified and a electronics parts sales representative section is submitted in C1. . D. The specimen is received in formalin, labeled "Suresh, Kit, proximal donut" and consists of a "donut" displaying bulging quezada mucosa measuring 1.8 x 1.8 x 0.9 cm. No gross lesions are identified and a electronics parts sales representative section is submitted in D1. (SDY; 01/12/2019) SAMUEL/NYLA . 02 Pathologist provided ICD-10: C19, K62.1, K52.9, K62.89 . 02 CPT . 682771, 695855, 356106, 047415, 035866 Specimen Comment: A courtesy copy of this report has been sent to Specimen Comment: [phone], . Specimen Comment: Report sent to / DR TIDWELL Performed at: 01 [facility] [address] [facility] [address], [place] [id number] MD Reji Freeman MD Phone: [phone] Performed at: 02 [facility] [address] [place], [place] [id number] MD Watson Moss MD Phone: [phone]
== END 2019-01-16 20:30 | disposition home health service (06) | DRG 331 ==
LOC: OPSVCIP 07:03 → 4 NORTH 14:31
PROVIDERS: ADMIT Surgery; ATTEND Surgery
PROC: 0T9880Z Drainage of Bilateral Ureters with Drainage Device, Via Natural or Artificial Opening Endoscopic (ICD-10-PCS; 2019-01-11)
PROC: 0DBP0ZZ Excision of Rectum, Open Approach (ICD-10-PCS; principal; 2019-01-11 08:30)
PROC: 0D1B0Z4 Bypass Ileum to Cutaneous, Open Approach (ICD-10-PCS; 2019-01-11 08:30)
DX: C20 Malignant neoplasm of rectum (principal); Z92.21 Personal history of antineoplastic chemotherapy; Z92.3 Personal history of irradiation
CPT/HCPCS: 36415; 74018; 80048; 85007; 85025; 85027; 86850; 86900; 86901; A7015; C1769; C2617; J0171; J0696; J1100; J1170; J1200; J1650; J2001; J2250; J2405; J2704; J2710; J3010; J3490; J7120; 97110; 97116; 97530; 97535; A4461

== ENCOUNTER → 2019-03-06 | Outpatient (CLI) | payer OTHER ==
[~2019-03-06] MED LIST changes: +CONTRAST GIVEN. MC PRN; +HYDR-2761 PO; -HYDROmorphone 2 MG/ML VIAL IV PRN; +IOHEXOL 300 MG/ML 100ML VIAL. PR ONE; -IV RINGERS,LACTATED 1000ML 1,000 ML IV SCH; -MORPHINE SULFATE 2 MG/ML VIAL. IV PRN; -ONDANSETRON PF 4 MG/2 ML VIAL. IV PRN; -PROCHLORPERAZINE 10 MG/2 ML VIAL. IV PRN; -fentaNYL PF VIAL 100 MCG/2 ML VIAL IV PRN
--- NOTE | 2019-03-06 10:02 | RAD ---
CLINICAL HISTORY: Preileostomy takedown-assess rectal anastomosis. DATE: 03/06/2019 8:30 AM COMPARISON: None available. TECHNIQUE: A single contrast lower GI study was performed using water soluble contrast. A rectal tube was inserted in the rectum and contrast was administered via gravity in a retrograde fashion. Postevacuation images were also obtained. Fluroscopy time was 0.7 minutes. Number of images: 9 FINDINGS:The sheetmetal patternmaker film demonstrated a nonobstructive bowel gas pattern and there were no abnormal calcifications and no abnormal soft tissue mass effect seen. Anastomotic suture line is seen within the pelvis. The colon was filled with contrast. The large bowel caliber was normal. Rectum is normal in appearance, with anastomotic suture line intact. No evidence for leak or extraluminal contrast. Cecum is located in the right lower quadrant. There were no constricting or obstructing lesions in the colon. Post evacuation film showed no abnormality. IMPRESSION: Changes of rectal anastomotic suture line without evidence for leak or extraluminal contrast. No significant associated narrowing. Electronically signed by: Brandon Wilkerson MD (03/06/2019 9:59 AM) [facility]
== END | disposition home or self-care (01) ==
LOC: RAD 08:14
PROVIDERS: ATTEND Surgery
DX: Z08 Encounter for follow-up examination after completed treatment for malignant neoplasm (principal); Z85.048 Personal history of other malignant neoplasm of rectum, rectosigmoid junction, and anus
CPT/HCPCS: 74270; Q9967

== ENCOUNTER 2019-03-08 06:00 | Inpatient (IN) | payer OTHER ==
[~2019-03-08] VITALS: Ht 173.4 cm; Wt 65.5 kg
[~2019-03-08 06:00] MED LIST changes: -CONTRAST GIVEN. MC PRN; -IOHEXOL 300 MG/ML 100ML VIAL. PR ONE
[2019-03-08] MEDS ORDERED: PROCHLORPERAZINE 10 MG/2 ML VIAL. IV PRN (07:00)
[2019-03-08] MEDS ORDERED: IV RINGERS,LACTATED 1000ML 1,000 ML IV SCH (07:00)
[2019-03-08] MEDS ORDERED: ONDANSETRON PF 4 MG/2 ML VIAL. IV PRN (07:00)
[2019-03-08] MEDS ORDERED: HYDROmorphone 2 MG/ML VIAL IV PRN ×2 (07:00→10:00)
[2019-03-08] MEDS ORDERED: fentaNYL PF VIAL 100 MCG/2 ML VIAL IV PRN (07:00)
[2019-03-08] MEDS ORDERED: MORPHINE SULFATE 2 MG/ML VIAL. IV PRN (07:00)
[2019-03-08] MEDS ORDERED: ROCURONIUM 50 MG/5 ML VIAL. ONE ×2 (07:07→08:32)
[2019-03-08] MEDS ORDERED: DEXAMETHASONE SOD PHOS 20 MG/5 ML VIAL. ONE (07:07)
[2019-03-08] MEDS ORDERED: fentaNYL PF VIAL 100 MCG/2 ML VIAL ONE ×2 (07:07→11:23)
[2019-03-08] MEDS ORDERED: PROPOFOL 20 ML IV ONE ×2 (07:07→09:24)
[2019-03-08] MEDS ORDERED: LIDOCAINE 2% PF 5 ML VIAL. ONE (07:07)
[2019-03-08] MEDS ORDERED: ONDANSETRON PF 4 MG/2 ML VIAL. ONE (07:07)
[2019-03-08] MEDS ORDERED: PHENYLEPHRINE in 0.9% NACL PF 1 MG/10 ML SYRINGE. IV ONE (07:47)
[2019-03-08] MEDS ORDERED: HYDROmorphone 2 MG/ML VIAL ONE (08:28)
[2019-03-08] MEDS ORDERED: WATER FOR INJECTION,STERILE 10 ML IJ ONE (08:29)
[2019-03-08] MEDS ORDERED: NEOSTIGMINE METHYLSULFATE 5 MG/5 ML SYRINGE. ONE (09:37)
[2019-03-08] MEDS ORDERED: GLYCOPYRROLATE 1 MG/5 ML VIAL. ONE (09:38)
[2019-03-08] MEDS: IV NORMAL SALINE 1000ML BAG 1,000 ML IV SCH (09:46)
--- NOTE | 2019-03-08 09:56 | PDOC4 ---
Operative Note Operative Note Operative Note: Preoperative Diagnosis: Rectal cancer Postoperative Diagnosis: Same Procedure: Ileostomy takedown Surgeon: Colin Tree Feller Operator: Hitesh ROSALES Anesthesia: Gen EBL: 10 mL Specimen: Loop ileostomy to pathology Drains: Iesha drain to subcutaneous tissue Complications: None Indication: The patient is a 68-year-old gentleman who underwent a prior low anterior resection with loop ileostomy for rectal cancer. The plan is to proceed now for ileostomy takedown. The risks of surgery were discussed with the patient which include bleeding, infection, pain, bowel obstruction, hernia formation, scar tissue formation, anesthetic risk, anastomotic leak, potential need for a dditional surgery or procedure. He understands and would like to proceed. Description: The patient was taken to the operating room and placed supine on the operating table. Gen. anesthesia was performed. The abdomen was prepped with ChloraPrep and draped in a standard surgical manner. An elliptical incision was made around the patient's right-sided ileostomy. Cautery dissection was used in the subcutaneous space. The ileostomy was mobilized from the subcutaneous tissue down to the level of the fascia. Both limbs of the ileostomy were freed completely from the fascia. The afferent and efferent loops of small bowel were divided using the LEELA 55 stapling device. The mesentery to the stoma was dissected. Blood vessels were ligated with 2-0 Vicryl and divided. The stoma was then sent to pathology. A 2 layer handsewn end-to-end anastomosis was then constructed. The posterior seromuscular layer was developed first with interrupted 3-0 Vicryl. The next layer was then performed with 3-0 PDS in a running locked fashion. The anterior seromuscular layer was then completed with 3-0 Vicryl. The mesenteric defect was closed with 3-0 Vicryl. Upon completion the anastomosis appeared viable and under no undue tension. The anastomosis was reduced back to the abdominal cavity. The posterior fascial layer was closed with 0 PDS suture. The anterior fascia was then approximated with 1 PDS. The deep subcutaneous tissue was closed with 0 Vicryl. A Iesha drain was then placed in the subcutaneous tissue which exited laterally. The subcutaneous tissue was closed with 3-0 Vicryl and skin approximated with 4-0 Monocryl. A sterile dressing was then applied. The patient tolerated the procedure well and was sent to the recovery room in stable condition. At the end of the case all counts were correct. BLANCA ADAMES MD Mar 08, 2019 09:56
[2019-03-08] MEDS ORDERED: 0.9 % SODIUM CHLORIDE 10 ML DISP.SYRIN. IV PRN (10:00)
[2019-03-08] MEDS ORDERED: NALOXONE 0.4 MG/ML VIAL. IV PRN (10:00)
[2019-03-08] MEDS: fentaNYL PF VIAL 100 MCG/2 ML VIAL IV PRN ×2 (10:25→10:35)
[2019-03-08] MEDS ORDERED: PROCHLORPERAZINE 10 MG/2 ML VIAL. ONE (10:48)
--- NOTE | 2019-03-08 11:45 | NUR ---
Rec'd from PACU per bed, alert/oriented, dressing to right lower abdomen clean, dry & intact with ice pack for comfort, bilateral LESLI hose & SCD for DVT prevention, carroll catheter to depedent drainage with clear yellow urine, IVF infusing into left dorsal hand, right chest michell cath palable but not accessed, upper/lower dentures, cell phone & clothes in plastic bag, oriented to surroundings, call light within reach, side rails up, bed alarm activated
[2019-03-08 12:00] VITALS: BP_SYST 127; BP_SYST 129; BP_DIAS 78
[2019-03-08] MEDS: HYDROmorphone 2 MG/ML VIAL IV PRN ×2 (12:02→16:49)
[2019-03-08 12:15] VITALS: BP 122/77
[2019-03-08 14:00] VITALS: BP 119/71
[2019-03-08 15:00] VITALS: BP 110/67
[2019-03-08] MEDS: IV 1/2 NORMAL SALINE 1,000 ML IV SCH ×2 (16:45→21:05)
[2019-03-08 19:00] VITALS: BP 109/72
[2019-03-08] MEDS: ENOXAPARIN 40 MG/0.4 ML SYRINGE. SQ SCH (21:06)
[2019-03-08 23:00] VITALS: BP 116/71
[2019-03-09] MEDS: IV 1/2 NORMAL SALINE 1,000 ML IV SCH ×3 (02:50→22:27)
[2019-03-09 03:00] VITALS: BP 103/67
[2019-03-09 04:46] LABS: BASO % 0 % (0-3); EOS % 0 % (0-3); HEMATOCRIT 35.9 % (39.0-53.0); HEMOGLOBIN 12.3 g/dL (13.0-17.5); LYMPH # 0.6 x10^3/uL (1.0-4.8); LYMPH % 6 % (24-48); MEAN CORPUSCULAR HEMOGLOBIN 33 pg (25-35); MEAN CORPUSCULAR HGB CONC 34 g/dL (31-37); MEAN CORPUSCULAR VOLUME 96 fL (79-100); MONO % 10 % (0-9); NEUT # 9.1 x10^3/uL (1.8-7.7); NEUT % 85 % (31-73); PLATELET COUNT 301 x10^3/uL (140-400); RED BLOOD COUNT 3.76 x10^6/uL (4.30-5.70); RED CELL DISTRIBUTION WIDTH 12.7 % (11.5-14.5); WHITE BLOOD COUNT 10.7 x10^3/uL (4.0-11.0)
[2019-03-09 05:04] LABS: CALCIUM 7.9 mg/dL (8.5-10.1); CREATININE 0.7 mg/dL (0.7-1.3); GFR 111.8
[2019-03-09 07:00] VITALS: BP 110/66
[2019-03-09] MEDS: HYDROmorphone 2 MG/ML VIAL IV PRN ×2 (07:46→18:10)
--- NOTE | 2019-03-09 09:37 | PDOC ---
EDUARDO LA CELERY CUTTER 03/09/19 0937: SURGICAL PROGRESS NOTE Subjective no nausea pain managed no flatus, some belching Vital Signs Vital Signs Date Time Temp Pulse Resp B/P (MAP) Pulse Ox O2 Delivery O2 Flow Rate FiO2 03/09/19 08:50 Room Air 03/09/19 07:00 99.2 86 18 110/66 (81) 95 99.2 03/08/19 11:29 3.0 I&O Intake and Output 03/09/19 07:00 Intake Total 1730 ml Output Total 410 ml Balance 1320 ml Intake Oral 380 ml IV Total 1350 ml Output Urine Total 400 ml Estimated Blood Loss 10 ml # Voids 1 PATIENT HAS A CARROLL: Yes (to dc today) General: Alert, Oriented X3, Cooperative, No acute distress Abdomen: Soft, Other (incision c/d/i, no erythema ) Labs Laboratory Tests Test 03/09/19 03:55 White Blood Count 10.7 x10^3/uL (4.0-11.0) Red Blood Count 3.76 x10^6/uL (4.30-5.70) Hemoglobin 12.3 g/dL (13.0-17.5) Hematocrit 35.9 % (39.0-53.0) Mean Corpuscular Volume 96 fL (79-100) Mean Corpuscular Hemoglobin 33 pg (25-35) Mean Corpuscular Hemoglobin Concent 34 g/dL (31-37) Red Cell Distribution Width 12.7 % (11.5-14.5) Platelet Count 301 x10^3/uL (140-400) Neutrophils (%) (Auto) 85 % (31-73) Lymphocytes (%) (Auto) 6 % (24-48) Monocytes (%) (Auto) 10 % (0-9) Eosinophils (%) (Auto) 0 % (0-3) Basophils (%) (Auto) 0 % (0-3) Neutrophils # (Auto) 9.1 x10^3/uL (1.8-7.7) Lymphocytes # (Auto) 0.6 x10^3/uL (1.0-4.8) Monocytes # (Auto) 1.0 x10^3/uL (0.0-1.1) Eosinophils # (Auto) 0.0 x10^3/uL (0.0-0.7) Basophils # (Auto) 0.0 x10^3/uL (0.0-0.2) Sodium Level 134 mmol/L (136-145) Potassium Level 4.0 mmol/L (3.5-5.1) Chloride Level 100 mmol/L (98-107) Carbon Dioxide Level 24 mmol/L (21-32) Anion Gap 10 (6-14) Blood Urea Nitrogen 7 mg/dL (8-26) Creatinine 0.7 mg/dL (0.7-1.3) Estimated GFR (Cockcroft-Gault) 111.8 Glucose Level 90 mg/dL (70-99) Calcium Level 7.9 mg/dL (8.5-10.1) Laboratory Tests Test 03/09/19 03:55 White Blood Count 10.7 x10^3/uL (4.0-11.0) Red Blood Count 3.76 x10^6/uL (4.30-5.70) Hemoglobin 12.3 g/dL (13.0-17.5) Hematocrit 35.9 % (39.0-53.0) Mean Corpuscular Volume 96 fL (79-100) Mean Corpuscular Hemoglobin 33 pg (25-35) Mean Corpuscular Hemoglobin Concent 34 g/dL (31-37) Red Cell Distribution Width 12.7 % (11.5-14.5) Platelet Count 301 x10^3/uL (140-400) Neutrophils (%) (Auto) 85 % (31-73) Lymphocytes (%) (Auto) 6 % (24-48) Monocytes (%) (Auto) 10 % (0-9) Eosinophils (%) (Auto) 0 % (0-3) Basophils (%) (Auto) 0 % (0-3) Neutrophils # (Auto) 9.1 x10^3/uL (1.8-7.7) Lymphocytes # (Auto) 0.6 x10^3/uL (1.0-4.8) Monocytes # (Auto) 1.0 x10^3/uL (0.0-1.1) Eosinophils # (Auto) 0.0 x10^3/uL (0.0-0.7) Basophils # (Auto) 0.0 x10^3/uL (0.0-0.2) Sodium Level 134 mmol/L (136-145) Potassium Level 4.0 mmol/L (3.5-5.1) Chloride Level 100 mmol/L (98-107) Carbon Dioxide Level 24 mmol/L (21-32) Anion Gap 10 (6-14) Blood Urea Nitrogen 7 mg/dL (8-26) Creatinine 0.7 mg/dL (0.7-1.3) Estimated GFR (Cockcroft-Gault) 111.8 Glucose Level 90 mg/dL (70-99) Calcium Level 7.9 mg/dL (8.5-10.1) Assessment/Plan s/p ileostomy takedown dc carroll ambulate await bowel function BLANCA ADAMES MD 03/09/19 1337: SURGICAL PROGRESS NOTE Assessment/Plan agree with above EDUARDO LA CELERY CUTTER Mar 09, 2019 09:37 BLANCA ADAMES MD Mar 09, 2019 13:37
[2019-03-09] MEDS: IV NORMAL SALINE 1000ML BAG 1,000 ML IV SCH (09:46)
[2019-03-09 11:00] VITALS: BP 96/67
[2019-03-09 15:00] VITALS: BP 109/69
[2019-03-09 19:00] VITALS: BP 82/49
[2019-03-09] MEDS: ENOXAPARIN 40 MG/0.4 ML SYRINGE. SQ SCH (21:06)
[2019-03-09 23:03] VITALS: BP 92/55
[2019-03-10 03:00] VITALS: BP 90/57
[2019-03-10] MEDS: ONDANSETRON PF 4 MG/2 ML VIAL. IV PRN ×2 (07:29→15:19)
[2019-03-10 07:48] VITALS: BP 90/51
--- NOTE | 2019-03-10 09:02 | PDOC ---
EDUARDO LA INSURANCE CLAIMS ASSISTANT 03/10/19 0902: SURGICAL PROGRESS NOTE Subjective nausea, not feeling well some bloating Vital Signs Vital Signs Date Time Temp Pulse Resp B/P (MAP) Pulse Ox O2 Delivery O2 Flow Rate FiO2 03/10/19 07:48 99.1 90 18 90/51 (64) 92 Room Air 99.1 I&O Intake and Output 03/10/19 07:00 Output Total 1400 ml Balance -1400 ml Output Urine Total 1400 ml # Voids 4 General: Alert, Cooperative Abdomen: Soft, Other (midl distention, incision c/d/i, no erythema) Labs Laboratory Tests Test 03/09/19 03:55 White Blood Count 10.7 x10^3/uL (4.0-11.0) Red Blood Count 3.76 x10^6/uL (4.30-5.70) Hemoglobin 12.3 g/dL (13.0-17.5) Hematocrit 35.9 % (39.0-53.0) Mean Corpuscular Volume 96 fL (79-100) Mean Corpuscular Hemoglobin 33 pg (25-35) Mean Corpuscular Hemoglobin Concent 34 g/dL (31-37) Red Cell Distribution Width 12.7 % (11.5-14.5) Platelet Count 301 x10^3/uL (140-400) Neutrophils (%) (Auto) 85 % (31-73) Lymphocytes (%) (Auto) 6 % (24-48) Monocytes (%) (Auto) 10 % (0-9) Eosinophils (%) (Auto) 0 % (0-3) Basophils (%) (Auto) 0 % (0-3) Neutrophils # (Auto) 9.1 x10^3/uL (1.8-7.7) Lymphocytes # (Auto) 0.6 x10^3/uL (1.0-4.8) Monocytes # (Auto) 1.0 x10^3/uL (0.0-1.1) Eosinophils # (Auto) 0.0 x10^3/uL (0.0-0.7) Basophils # (Auto) 0.0 x10^3/uL (0.0-0.2) Sodium Level 134 mmol/L (136-145) Potassium Level 4.0 mmol/L (3.5-5.1) Chloride Level 100 mmol/L (98-107) Carbon Dioxide Level 24 mmol/L (21-32) Anion Gap 10 (6-14) Blood Urea Nitrogen 7 mg/dL (8-26) Creatinine 0.7 mg/dL (0.7-1.3) Estimated GFR (Cockcroft-Gault) 111.8 Glucose Level 90 mg/dL (70-99) Calcium Level 7.9 mg/dL (8.5-10.1) Assessment/Plan s/p ileostomy takedown nausea, mild distention npo, await bowel function BLANCA ADAMES MD 03/10/19 1533: SURGICAL PROGRESS NOTE Assessment/Plan agree with above EDUARDO LA INSURANCE CLAIMS ASSISTANT Mar 10, 2019 09:02 BLANCA ADAMES MD Mar 10, 2019 15:33
--- NOTE | 2019-03-10 09:07 | PATHOLOGY ---
[facility] Accession Number: [id number] . 01 Material submitted: . abdomen - LOOP ILEOSTOMY . 01 Clinical history: . Rectal CA Ileostomy takedown . 02 Diagnosis: "Loop ileostomy", ileostomy takedown: - Segment of unremarkable small bowel mucosa. - Attached portion of skin with mild subcutaneous fibrosis and mild chronic inflammation. (SKM:maureen; 03/09/2019) MBR 03/09/2019 1510 Local . 02 Electronically signed: . Doug Palomino MD, Pathologist NPI- [id number] . 01 Gross description: . The specimen is received in formalin, labeled "Kit Prince, loop ileostomy" and consists of a segment of gastrointestinal tissue measuring 7.8 cm in length and up to 3.8 cm and diameter in which both margins are closed with maddison. There is an elliptical segment of pink-quezada skin measuring 5.8 x 3.6 cm displaying bulging unremarkable quezada mucosa with 2 probe patent os. Opening reveals a pink-quezada mucosa with no masses or lesions. Therapy Aide sections from each stoma os are submitted in A1-A2. (SDY; 03/08/2019) SYU/SYU 03/08/2019 1657 Local . 02 Pathologist provided ICD-10: L90.5, L98.9 . 02 CPT . 052509 Specimen Comment: A courtesy copy of this report has been sent to Specimen Comment: [phone], . Specimen Comment: Report sent to / DR TIDWELL Performed at: [address], [place], [place] [id number] MD Reji Freeman MD Phone: [phone] Performed at: 02 [facility] [address] [place], [place] [id number] MD Watson Moss MD Phone: [phone]
[2019-03-10] MEDS: IV NORMAL SALINE 1000ML BAG 1,000 ML IV SCH ×2 (09:46→21:38)
[2019-03-10 11:26] VITALS: BP 99/62
[2019-03-10] MEDS: IV 1/2 NORMAL SALINE 1,000 ML IV SCH ×2 (12:01→21:33)
[2019-03-10 15:30] VITALS: BP 95/64
[2019-03-10 19:00] VITALS: BP 78/41
[2019-03-10] MEDS: ENOXAPARIN 40 MG/0.4 ML SYRINGE. SQ SCH (21:34)
[2019-03-10 22:47] VITALS: BP 81/58
[2019-03-11] MEDS: ONDANSETRON PF 4 MG/2 ML VIAL. IV PRN ×2 (02:38→17:37)
--- NOTE | 2019-03-11 02:45 | NUR ---
Ambulated to toilet, + void. Refuses to use urinal. Remains NPO. Surgical dressing changed earlier. C/o "bloating" but no belly pain. C/o nausea- Zofran given IVP.
[2019-03-11 03:00] VITALS: BP 93/61
[2019-03-11] MEDS: IV 1/2 NORMAL SALINE 1,000 ML IV SCH ×2 (06:39→17:35)
[2019-03-11 07:00] VITALS: BP 78/56
[2019-03-11 11:00] VITALS: BP 110/94
--- NOTE | 2019-03-11 12:54 | PDOC ---
PROGRESS NOTES Subjective Subjective thinks he may have had a "tiny bit" of flatus, otherwise ok Objective Objective Vital Signs Date Time Temp Pulse Resp B/P (MAP) Pulse Ox O2 Delivery O2 Flow Rate FiO2 03/11/19 11:00 98.9 98 18 110/94 (99) 93 Room Air 98.9 03/11/19 03:00 3.0 Intake and Output 03/11/19 07:00 Intake Total 400 ml Output Total 0 ml Balance 400 ml Intake Oral 0 ml Blood Product IV Normal Saline Flush 400 ml Stool Total 0 ml Drainage Total 0 ml # Voids 3 Physical Exam Abdomen: Soft Assessment Assessment S/P ileostomy takedown Plan Plan of Care await bowel function Comment Review of Relevant I have reviewed the following items abigail (where applicable) has been applied. Labs Laboratory Tests Test 03/10/19 20: Glucose (Fingerstick) 93 mg/dL (70-99) Laboratory Tests Test 03/10/19 20: Glucose (Fingerstick) 93 mg/dL (70-99) Medications Current Medications Ondansetron HCl (Zofran) 4 mg PRN Q6HRS PRN IV NAUSEA/VOMITING; Start 03/08/19 at 07:00; Stop 03/08/19 at 14:02; Status DC Fentanyl Citrate (Fentanyl 2ml Vial) 25 mcg PRN Q5MIN PRN IV MILD PAIN 1-3 Last administered on 03/08/19at 11:29; Start 03/08/19 at 07:00; Stop 03/08/19 at 14:02; Status DC Fentanyl Citrate (Fentanyl 2ml Vial) 50 mcg PRN Q5MIN PRN IV MODERATE TO SEVERE PAIN Last administered on 03/08/19at 10:44; Start 03/08/19 at 07:00; Stop 03/08/19 at 14:02; Status DC Morphine Sulfate (Morphine Sulfate) 1 mg PRN Q10MIN PRN IV SEVERE PAIN 7-10; Start 03/08/19 at 07:00; Stop 03/08/19 at 14:02; Status DC Ringer's Solution 1,000 ml @ 30 mls/hr Q24H IV Last administered on 03/08/19at 06:43; Start 03/08/19 at 07:00; Stop 03/08/19 at 14:02; Status DC Hydromorphone HCl (Dilaudid) 0.5 mg PRN Q10MIN PRN IV SEV PAIN, Second choice; Start 03/08/19 at 07:00; Stop 03/08/19 at 14:02; Status DC Prochlorperazine Edisylate (Compazine) 5 mg PACU PRN PRN IV NAUSEA, MRX1 Last administered on 03/08/19at 10:57; Start 03/08/19 at 07:00; Stop 03/08/19 at 14:02; Status DC Cefazolin Sodium/ Dextrose 50 ml @ 100 mls/hr 1X PREOP PRN IV PRIOR TO PROCEDURE Last administered on 03/08/19at 08:01; Start 03/08/19 at 06:00; Stop 03/08/19 at 18:00; Status DC Metronidazole 100 ml @ 100 mls/hr 1X ONCE IV ; Start 03/07/19 at 16:30; Stop 03/07/19 at 17:29; Status DC Dexamethasone Sodium Phosphate (Decadron) 20 mg STK-MED ONCE .ROUTE ; Start 03/08/19 at 07:07; Stop 03/08/19 at 07:07; Status DC Lidocaine HCl (Lidocaine Pf 2% Vial) 5 ml STK-MED ONCE .ROUTE ; Start 03/08/19 at 07:07; Stop 03/08/19 at 07:07; Status DC Propofol 20 ml @ As Directed STK-MED ONCE IV ; Start 03/08/19 at 07:07; Stop 03/08/19 at 07:07; Status DC Ondansetron HCl (Zofran) 4 mg STK-MED ONCE .ROUTE ; Start 03/08/19 at 07:07; Stop 03/08/19 at 07:07; Status DC Rocuronium [place] (Zemuron) 50 mg STK-MED ONCE .ROUTE ; Start 03/08/19 at 07:07; Stop 03/08/19 at 07:07; Status DC Fentanyl Citrate (Fentanyl 2ml Vial) 100 mcg STK-MED ONCE .ROUTE ; Start 03/08/19 at 07:07; Stop 03/08/19 at 07:07; Status DC Phenylephrine HCl (PHENYLEPHRINE in 0.9% NACL PF) 1 mg STK-MED ONCE IV ; Start 03/08/19 at 07:47; Stop 03/08/19 at 07:48; Status DC Metronidazole 100 ml @ 100 mls/hr 1X ONCE IV Last administered on 03/08/19at 08:21; Start 03/08/19 at 08:30; Stop 03/08/19 at 09:29; Status DC Hydromorphone HCl (Dilaudid) 2 mg STK-MED ONCE .ROUTE ; Start 03/08/19 at 08:28; Stop 03/08/19 at 08:28; Status DC Sterile Water 10 ml @ As Directed STK-MED ONCE IJ ; Start 03/08/19 at 08:29; Stop 03/08/19 at 08:29; Status DC Rocuronium [place] (Zemuron) 50 mg STK-MED ONCE .ROUTE ; Start 03/08/19 at 08:32; Stop 03/08/19 at 08:32; Status DC Propofol 20 ml @ As Directed STK-MED ONCE IV ; Start 03/08/19 at 09:24; Stop 03/08/19 at 09:25; Status DC Neostigmine Methylsulfate (Neostigmine Methylsulfate) 5 mg STK-MED ONCE .ROUTE ; Start 03/08/19 at 09:37; Stop 03/08/19 at 09:37; Status DC Glycopyrrolate (Robinul) 1 mg STK-MED ONCE .ROUTE ; Start 03/08/19 at 09:38; Stop 03/08/19 at 09:38; Status DC Enoxaparin Sodium (Lovenox 40mg Syringe) 40 mg Q24H SQ Last administered on 03/10/19at 21:34; Start 03/08/19 at 21:00 Sodium Chloride (Normal Saline Flush) 3 ml QSHIFT PRN IV AFTER MEDS AND BLOOD DRAWS; Start 03/08/19 at 10:00 Sodium Chloride 1,000 ml @ 100 mls/hr Q10H IV Last administered on 03/11/19at 06:39; Start 03/08/19 at 09:46 Naloxone HCl (Narcan) 0.4 mg PRN Q2MIN PRN IV SEE INSTRUCTIONS; Start 03/08/19 at 10:00 Sodium Chloride 1,000 ml @ 25 mls/hr Q24H IV ; Start 03/08/19 at 09:46; Stop 03/10/19 at 21:39; Status DC Hydromorphone HCl (Dilaudid) 0.2 mg PRN Q2HRS PRN IV PAIN Last administered on 03/09/19at 21:06; Start 03/08/19 at 10:00 Ondansetron HCl (Zofran) 4 mg PRN Q6HRS PRN IV NAUESA, 1ST CHOICE Last administered on 03/11/19at 02:40; Start 03/08/19 at 10:00 Hydromorphone HCl (Dilaudid) 0.5 mg PRN Q2HRS PRN IV PAIN Last administered on 03/09/19at 18:10; Start 03/08/19 at 10:00 Prochlorperazine Edisylate (Compazine) 10 mg STK-MED ONCE .ROUTE ; Start 03/08/19 at 10:48; Stop 03/08/19 at 10:49; Status DC Fentanyl Citrate (Fentanyl 2ml Vial) 100 mcg STK-MED ONCE .ROUTE ; Start 03/08/19 at 11:23; Stop 03/08/19 at 11:23; Status DC Active Scripts Active Hydrocodone-Apap 5-325 (Hydrocodone Bit/Acetaminophen) 1 Tab Tablet 2 Tab PO PRN Q4HRS PRN Vitals/I & O Vital Sign - Last 24 Hours 03/10/19 03/10/19 03/10/19 03/11/19 15:30 19:00 22:47 03:00 Temp 98.2 98.2 98.3 99.8 98.2 98.2 98.3 99.8 Pulse 68 68 61 52 Resp 18 17 16 18 B/P (MAP) 95/64 (74) 78/41 (53) 81/58 (66) 93/61 (72) Pulse Ox 91 96 98 95 O2 Delivery Room Air Room Air Room Air Room Air O2 Flow Rate 3.0 3.0 3.0 03/11/19 03/11/19 03/11/19 07:00 08:00 11:00 Temp 98.3 98.9 98.3 98.9 Pulse 61 98 Resp 18 18 B/P (MAP) 78/56 (63) 110/94 (99) Pulse Ox 96 93 O2 Delivery Room Air Room Air Room Air Intake and Output 03/10/19 03/10/19 03/11/19 15:00 23:00 07:00 Intake Total 400 ml Output Total 0 ml Balance 400 ml BLANCA ADAMES MD Mar 11, 2019 12:54
[2019-03-11 15:00] VITALS: BP 107/67
[2019-03-11 19:00] VITALS: BP 93/51
[2019-03-11] MEDS: ENOXAPARIN 40 MG/0.4 ML SYRINGE. SQ SCH (20:39)
[2019-03-11 23:04] VITALS: BP 128/70
[2019-03-12] MEDS: ONDANSETRON PF 4 MG/2 ML VIAL. IV PRN (01:28)
[2019-03-12] MEDS: IV 1/2 NORMAL SALINE 1,000 ML IV SCH ×2 (02:39→13:46)
[2019-03-12 03:05] VITALS: BP 90/59
[2019-03-12 07:00] VITALS: BP 91/54
--- NOTE | 2019-03-12 10:34 | PDOC ---
PROGRESS NOTES Subjective Subjective having stools, feeling well Objective Objective Vital Signs Date Time Temp Pulse Resp B/P (MAP) Pulse Ox O2 Delivery O2 Flow Rate FiO2 03/12/19 07:45 Room Air 03/12/19 07:00 98.1 88 16 91/54 (66) 95 98.1 03/11/19 03:00 3.0 Intake and Output 03/12/19 07:00 Intake Total 1000 ml Balance 1000 ml Intake Oral 0 ml IV Total 1000 ml # Voids 2 # Bowel Movements 1 Physical Exam Abdomen: Soft, No hepatosplenomegaly Assessment Assessment S/P ileostomy takedown Plan Plan of Care clears Comment Review of Relevant I have reviewed the following items abigail (where applicable) has been applied. Labs Laboratory Tests Test 03/10/19 20:19 Glucose (Fingerstick) 93 mg/dL (70-99) Medications Current Medications Ondansetron HCl (Zofran) 4 mg PRN Q6HRS PRN IV NAUSEA/VOMITING; Start 03/08/19 at 07:00; Stop 03/08/19 at 14:02; Status DC Fentanyl Citrate (Fentanyl 2ml Vial) 25 mcg PRN Q5MIN PRN IV MILD PAIN 1-3 Last administered on 03/08/19at 11:29; Start 03/08/19 at 07:00; Stop 03/08/19 at 14:0 2; Status DC Fentanyl Citrate (Fentanyl 2ml Vial) 50 mcg PRN Q5MIN PRN IV MODERATE TO SEVERE PAIN Last administered on 03/08/19at 10:44; Start 03/08/19 at 07:00; Stop 03/08/19 at 14:02; Status DC Morphine Sulfate (Morphine Sulfate) 1 mg PRN Q10MIN PRN IV SEVERE PAIN 7-10; Start 03/08/19 at 07:00; Stop 03/08/19 at 14:02; Status DC Ringer's Solution 1,000 ml @ 30 mls/hr Q24H IV Last administered on 03/08/19at 06:43; Start 03/08/19 at 07:00; Stop 03/08/19 at 14:02; Status DC Hydromorphone HCl (Dilaudid) 0.5 mg PRN Q10MIN PRN IV SEV PAIN, Second choice; Start 03/08/19 at 07:00; Stop 03/08/19 at 14:02; Status DC Prochlorperazine Edisylate (Compazine) 5 mg PACU PRN PRN IV NAUSEA, MRX1 Last administered on 03/08/19at 10:57; Start 03/08/19 at 07:00; Stop 03/08/19 at 14:02; Status DC Cefazolin Sodium/ Dextrose 50 ml @ 100 mls/hr 1X PREOP PRN IV PRIOR TO PROCEDURE Last administered on 03/08/19at 08:01; Start 03/08/19 at 06:00; Stop 03/08/19 at 18:00; Status DC Metronidazole 100 ml @ 100 mls/hr 1X ONCE IV ; Start 03/07/19 at 16:30; Stop 03/07/19 at 17:29; Status DC Dexamethasone Sodium Phosphate (Decadron) 20 mg STK-MED ONCE .ROUTE ; Start 03/08/19 at 07:07; Stop 03/08/19 at 07:07; Status DC Lidocaine HCl (Lidocaine Pf 2% Vial) 5 ml STK-MED ONCE .ROUTE ; Start 03/08/19 at 07:07; Stop 03/08/19 at 07:07; Status DC Propofol 20 ml @ As Directed STK-MED ONCE IV ; Start 03/08/19 at 07:07; Stop 03/08/19 at 07:07; Status DC Ondansetron HCl (Zofran) 4 mg STK-MED ONCE .ROUTE ; Start 03/08/19 at 07:07; Stop 03/08/19 at 07:07; Status DC Rocuronium [place] (Zemuron) 50 mg STK-MED ONCE .ROUTE ; Start 03/08/19 at 07:07; Stop 03/08/19 at 07:07; Status DC Fentanyl Citrate (Fentanyl 2ml Vial) 100 mcg STK-MED ONCE .ROUTE ; Start 03/08/19 at 07:07; Stop 03/08/19 at 07:07; Status DC Phenylephrine HCl (PHENYLEPHRINE in 0.9% NACL PF) 1 mg STK-MED ONCE IV ; Start 03/08/19 at 07:47; Stop 03/08/19 at 07:48; Status DC Metronidazole 100 ml @ 100 mls/hr 1X ONCE IV Last administered on 03/08/19at 08:21; Start 03/08/19 at 08:30; Stop 03/08/19 at 09:29; Status DC Hydromorphone HCl (Dilaudid) 2 mg STK-MED ONCE .ROUTE ; Start 03/08/19 at 08:28; Stop 03/08/19 at 08:28; Status DC Sterile Water 10 ml @ As Directed STK-MED ONCE IJ ; Start 03/08/19 at 08:29; Stop 03/08/19 at 08:29; Status DC Rocuronium [place] (Zemuron) 50 mg STK-MED ONCE .ROUTE ; Start 03/08/19 at 08:32; Stop 03/08/19 at 08:32; Status DC Propofol 20 ml @ As Directed STK-MED ONCE IV ; Start 03/08/19 at 09:24; Stop 03/08/19 at 09:25; Status DC Neostigmine Methylsulfate (Neostigmine Methylsulfate) 5 mg STK-MED ONCE .ROUTE ; Start 03/08/19 at 09:37; Stop 03/08/19 at 09:37; Status DC Glycopyrrolate (Robinul) 1 mg STK-MED ONCE .ROUTE ; Start 03/08/19 at 09:38; Stop 03/08/19 at 09:38; Status DC Enoxaparin Sodium (Lovenox 40mg Syringe) 40 mg Q24H SQ Last administered on 03/11/19at 20:39; Start 03/08/19 at 21:00 Sodium Chloride (Normal Saline Flush) 3 ml QSHIFT PRN IV AFTER MEDS AND BLOOD DRAWS; Start 03/08/19 at 10:00 Sodium Chloride 1,000 ml @ 100 mls/hr Q10H IV Last administered on 03/12/19at 02:39; Start 03/08/19 at 09:46 Naloxone HCl (Narcan) 0.4 mg PRN Q2MIN PRN IV SEE INSTRUCTIONS; Start 03/08/19 at 10:00 Sodium Chloride 1,000 ml @ 25 mls/hr Q24H IV ; Start 03/08/19 at 09:46; Stop 03/10/19 at 21:39; Status DC Hydromorphone HCl (Dilaudid) 0.2 mg PRN Q2HRS PRN IV PAIN Last administered on 03/09/19at 21:06; Start 03/08/19 at 10:00 Ondansetron HCl (Zofran) 4 mg PRN Q6HRS PRN IV NAUESA, 1ST CHOICE Last administered on 03/12/19at 01:28; Start 03/08/19 at 10:00 Hydromorphone HCl (Dilaudid) 0.5 mg PRN Q2HRS PRN IV PAIN Last administered on 03/09/19at 18:10; Start 03/08/19 at 10:00 Prochlorperazine Edisylate (Compazine) 10 mg STK-MED ONCE .ROUTE ; Start 03/08/19 at 10:48; Stop 03/08/19 at 10:49; Status DC Fentanyl Citrate (Fentanyl 2ml Vial) 100 mcg STK-MED ONCE .ROUTE ; Start 03/08/19 at 11:23; Stop 03/08/19 at 11:23; Status DC Active Scripts Active Hydrocodone-Apap 5-325 (Hydrocodone Bit/Acetaminophen) 1 Tab Tablet 2 Tab PO PRN Q4HRS PRN Vitals/I & O Vital Sign - Last 24 Hours 03/11/19 03/11/19 03/11/19 03/11/19 11:00 15:00 19:00 19:05 Temp 98.9 98.2 97.9 98.9 98.2 97.9 Pulse 98 101 82 Resp 18 B/P (MAP) 110/94 (99) 107/67 (80) 93/51 (65) Pulse Ox 93 96 94 O2 Delivery Room Air Room Air Room Air Room Air 03/11/19 03/12/19 03/12/19 03/12/19 23:04 03:05 07:00 07:45 Temp 98.8 98.9 98.1 98.8 98.9 98.1 Pulse 91 83 88 Resp 16 B/P (MAP) 128/70 (89) 90/59 (69) 91/54 (66) Pulse Ox 92 92 95 O2 Delivery Room Air Nasal Cannula Room Air Intake and Output0 03/11/19 03/11/19 03/12/19 15:00 23:00 07:00 Intake Total 1000 ml Balance 1000 ml BLANCA ADAMES MD Mar 12, 2019 10:34
[2019-03-12 11:00] VITALS: BP 131/53
[2019-03-12 15:00] VITALS: BP 99/60
[2019-03-12] MEDS ORDERED: HYDROcodone/APAP 5/325MG 1 TAB TABLET PO PRN ×2 (19:15)
[2019-03-12 20:45] VITALS: BP 107/60
[2019-03-12] MEDS: ENOXAPARIN 40 MG/0.4 ML SYRINGE. SQ SCH (20:55)
[2019-03-12 23:55] VITALS: BP 81/49
[2019-03-13 04:05] VITALS: BP 92/57
[2019-03-13 07:00] VITALS: BP 95/57
--- NOTE | 2019-03-13 08:43 | DISCH ---
DISCHARGE INSTRUCTIONS Condition on Discharge Condition on Discharge: Stable Activity After Discharge Activity Instructions for Disc: Activity as tolerated Bathing Instructions: Shower-keep dressing dry Lifting Instructions after Dis: No heavy lifting (x20lbs) Driving Instructions after Dis: Do not drive today Weight Bearing Status after Di: As tolerated Diet after Discharge Diet after Discharge: GI Soft Diet Texture: Regular Liquid Texture: Thin Liquid Wound Incision Care Wound/Incision Care: Change dressing, May get incision wet Contacting the DRRosalie after DC Call your doctor for: Concerns you may have Follow-Up Follow up with: Dr Shaw 2 weeks, call to schedule [phone] Treatment/Equipment after DC Adaptive Equipment Issued: EDUARDO Bolton APRN Mar 13, 2019 08:43
[2019-03-13 11:00] VITALS: BP 92/52
--- NOTE | 2019-03-13 14:10 | NUR ---
SS following for discharge planning. SS reviewed pt chart. Discharge order on the chart for home with self care. PT recommended home independent.
--- NOTE | 2019-03-13 14:25 | NUR ---
pt is discharged home with self care at 1410 via ambulation via this RN. pt is in stable condition. pt has all belongings with him. pt received discharge instructions and prescriptions and stated he had no further questions for me. pt sent with supplies to change dressing daily and PRN.
== END 2019-03-13 14:10 | disposition home or self-care (01) | DRG 330 ==
LOC: OPSVCIP 06:00 → 4 NORTH 11:47
PROVIDERS: ADMIT Surgery; ATTEND Surgery
PROC: 0DBB0ZZ Excision of Ileum, Open Approach (ICD-10-PCS; principal; 2019-03-08 07:30)
DX: Z43.2 Encounter for attention to ileostomy (principal); C20 Malignant neoplasm of rectum; M10.9 Gout, unspecified; Z85.048 Personal history of other malignant neoplasm of rectum, rectosigmoid junction, and anus; Z82.3 Family history of stroke
CPT/HCPCS: 36415; 80048; 82962; 85025; 88304; A7015; C1769; J0696; J0780; J1100; J1170; J1650; J2001; J2370; J2405; J2704; J2710; J3010; J3490; J7120; A4461; G0378

== ENCOUNTER → 2019-04-04 | Outpatient (CLI) | payer OTHER ==
[2019-03-13 11:00] VITALS: BP 92/52
--- NOTE | 2019-04-04 17:39 | KCIC ---
LEFT LEG VENOUS DOPPLER STUDY: Clinical indications: Left leg swelling and pain. Findings: Duplex sonography (including canseco scale evaluation and color flow and waveform spectral analysis) of the proximal aspect of the greater saphenous vein and the proximal aspect of the profunda femoral vein and the entire length of the common femoral and superficial femoral and popliteal veins and the tibioperoneal trunk and the proximal aspect of the posterior tibial and peroneal veins of the left leg was performed. Normal compressibility, augmentation of color Doppler flow after calf compression, and respiratory variation of Doppler flow is seen. Thus, there are no sonographic findings of deep venous thrombosis within these veins. Impression: There are no sonographic findings of deep venous thrombosis within the veins discussed above of the left lower extremity. RIGHT LEG VENOUS DOPPLER STUDY: Clinical indications: Right leg swelling and pain. Findings: Duplex sonography (including canseco scale evaluation and color flow and waveform spectral analysis) of the proximal aspect of the greater saphenous vein and proximal aspect of the profunda femoral vein and the entire length of the common femoral and superficial femoral and popliteal veins and the tibioperoneal trunk and the proximal aspect of the posterior tibial and peroneal veins of the right leg was performed. Normal compressibility, augmentation of color Doppler flow after calf compression, and respiratory variation of Doppler flow is seen. Thus, there are no sonographic findings of deep venous thrombosis within these veins. Impression: There are no sonographic findings of deep venous thrombosis within the veins discussed above of the right lower extremity. Electronically signed by: Kishor Mccormack MD (04/04/2019 5:36 PM) [id number]
== END | disposition home or self-care (01) ==
LOC: KCIC US 15:02
PROVIDERS: ATTEND Family Medicine
DX: R60.0 Localized edema (principal)
CPT/HCPCS: 93970

== ENCOUNTER → 2019-09-04 | Outpatient (CLI) | payer OTHER ==
[~2019-09-04] MED LIST changes: +IOHEXOL 240 MG/ML 50ML VIAL. PO ONE; +IOHEXOL 300 MG/ML 100ML VIAL. IV ONE
--- NOTE | 2019-09-04 11:37 | RAD ---
CT chest, abdomen and pelvis with contrast Contrast: 75 mL Omnipaque 300 intravenous contrast. HISTORY: Rectal cancer. Malignant neoplasm of rectum. COMPARISON: CT chest October 04, [address] abdomen and pelvis September 01, 2018. Chest findings: Calcified plaque aortic arch and coronary arteries. Right jugular portacatheter tip SVC. Heart size normal. 2 subcentimeter hypodense left thyroid lobe nodules. Coronary vessels and esophagus are unremarkable. Mild bilateral gynecomastia. Calcified granulomas in the chest. Centrilobular paraseptal pulmonary emphysema. 4 mm linear nodule or scar right middle lobe along the minor fissure image 36 stable. 3 mm linear nodule or scar posterior subpleural left lower lobe image 26 is new. Bones are unremarkable. Abdomen findings: Liver, gallbladder, adrenal glands, kidneys, pancreas and spleen are unremarkable. The appendix is negative. No obstruction or inflammatory changes in GI tract. Moderate volume of stool. Aortoiliac calcified plaque. No abdominal fluid or nodularity. No adenopathy. Bones are unremarkable. Pelvis findings: Since the prior exam there has been resection of the rectal mass with colorectal anastomosis. There is diffuse bladder wall thickening. Prostate and bones are unremarkable. Within the presacral space there is a loculated fluid collection measuring 6 cm transverse by 2 cm AP by 6 cm craniocaudal abutting the anterior sacral cortex and performance muscles. IMPRESSION: 1. Status post surgical resection of the rectal mass since the prior exam. There is a loculated presacral fluid collection. No definitive evidence of local recurrent disease or metastatic disease. 2. Urinary bladder wall thickening may be the sequela of prior radiation treatment or infectious cystitis. 3. 3 mm linear nodule or scar posterior left lower lobe is new from the prior study. Per Fleischner guidelines CT follow-up in 12 months is advised to document stability. Exposure: One or more of the following individualized dose reduction techniques were utilized for this examination: 1. Automated exposure control 2. Adjustment of the mA and/or kV according to patient size 3. Use of iterative reconstruction technique Electronically signed by: John Turner MD (09/04/2019 11:33 AM) [id number]
== END | disposition home or self-care (01) ==
LOC: CT 09:02
PROVIDERS: ATTEND Internal Medicine Hematology & Oncology
DX: C20 Malignant neoplasm of rectum (principal); J43.2 Centrilobular emphysema; N32.89 Other specified disorders of bladder; I70.0 Atherosclerosis of aorta; E04.2 Nontoxic multinodular goiter; N62 Hypertrophy of breast
CPT/HCPCS: 71260; 74177; Q9966; Q9967

== ENCOUNTER → 2019-12-06 | Day surgery (SDC) | payer OTHER ==
[~2019-12-06] MED LIST changes: -IOHEXOL 240 MG/ML 50ML VIAL. PO ONE; -IOHEXOL 300 MG/ML 100ML VIAL. IV ONE; +IV RINGERS,LACTATED 1000ML 1,000 ML IV ONE; +IV RINGERS,LACTATED 1000ML 1,000 ML IV SCH; +PROPOFOL 10 MG/ML (20ML) VIAL. IV ONE
[2019-12-06 08:20] VITALS: BP 101/54
--- NOTE | 2019-12-06 09:50 | HP ---
ADMIT DATE: 12/06/2019 UPDATED HISTORY AND PHYSICAL REFERRING PHYSICIAN: Aaron Nieves MD HISTORY OF PRESENT ILLNESS: This is a 69-year-old male with past medical history significant for rectosigmoid colon cancer, status post resection, chemotherapy and radiation treatment, seen for surveillance exam. Bowel habits are regular. There has been no bleeding. Weight and appetite have improved since the treatments and he is otherwise without additional complaints. PAST MEDICAL HISTORY: History of colon cancer. ALLERGIES: None. MEDICATIONS: Hydrocodone as needed. FAMILY AND SOCIAL HISTORY: He is a social drinker and a former smoker. PAST SURGICAL HISTORY: Sigmoid resection. REVIEW OF SYSTEMS: Per records. PHYSICAL EXAMINATION: GENERAL: Reveals a well-nourished, well-developed male who is alert, cooperative, in no acute distress. VITAL SIGNS: Temperature 97.8, pulse 90, respirations 20. LUNGS: Clear. CARDIOVASCULAR: Reveals an S1, S2 without S3, S4 or appreciable murmur. ABDOMEN: Soft abdomen, normal bowel sounds, without appreciable hepatosplenomegaly. EXTREMITIES: Have no cyanosis, clubbing or edema. IMPRESSION: History of colon cancer, status post resection. Surveillance exam is recommended at this time. Risks and benefits of procedure including risk of hemorrhage and perforation for operation have been discussed. The patient is willing to proceed. BLANCA SANTIAGO MD DR: BURTON/frandy JOB#: [id number] / [id number]
== END ==
LOC: ENDOS 06:24
PROVIDERS: ATTEND Internal Medicine Gastroenterology
DX: Z12.11 Encounter for screening for malignant neoplasm of colon (principal); K64.0 First degree hemorrhoids; K63.89 Other specified diseases of intestine; Z90.49 Acquired absence of other specified parts of digestive tract; Z98.0 Intestinal bypass and anastomosis status; Z85.038 Personal history of other malignant neoplasm of large intestine
CPT/HCPCS: 45378; J2704

== ENCOUNTER → 2020-01-11 | Outpatient (CLI) | payer OTHER ==
[2019-12-06 08:20] VITALS: BP 101/54
[~2020-01-11] MED LIST changes: +HYDR-3164 PO; +HYDR50TA6 PO; -IV RINGERS,LACTATED 1000ML 1,000 ML IV ONE; -IV RINGERS,LACTATED 1000ML 1,000 ML IV SCH; +MULT1CAP15 PO; -PROPOFOL 10 MG/ML (20ML) VIAL. IV ONE
== END | disposition home or self-care (01) ==
LOC: LAB 12:20
PROVIDERS: ATTEND Surgery
DX: Z11.59 Encounter for screening for other viral diseases (principal)
CPT/HCPCS: U0003-CS

== ENCOUNTER 2020-01-15 09:47 | Day surgery (SDC) | payer OTHER ==
[~2020-01-15] VITALS: Ht 173.4 cm; Wt 76.0 kg
[~2020-01-15 09:47] MED LIST changes: -HYDR-3164 PO; +HYDROmorphone 2 MG/ML VIAL IV PRN; +IV RINGERS,LACTATED 1000ML 1,000 ML IV SCH; +LIDOCAINE 1% PF 2 ML VIAL. ID PRN; +MORPHINE SULFATE 2 MG/ML VIAL. IV PRN; +ONDANSETRON PF 4 MG/2 ML VIAL. IV PRN; +PROCHLORPERAZINE 10 MG/2 ML VIAL. IV PRN; +fentaNYL PF VIAL 100 MCG/2 ML VIAL IV PRN
[2020-01-15] MEDS ORDERED: PROPOFOL 10 MG/ML (20ML) VIAL. IV ONE ×3 (09:53→11:28)
[2020-01-15] MEDS ORDERED: LIDOCAINE 2% PF 5 ML VIAL. ONE ×2 (09:53→11:01)
[2020-01-15] MEDS ORDERED: ceFAZolin 2GM PREMIX 2 GM/50 ML BAG IV ONE (11:00)
[2020-01-15] MEDS ORDERED: fentaNYL PF VIAL 100 MCG/2 ML VIAL ONE (11:01)
[2020-01-15] MEDS ORDERED: BUPIVACAINE-EPI 0.5%-1:200000 MPF 30 ML VIAL. ONE (11:07)
[2020-01-15] MEDS ORDERED: ONDANSETRON PF 4 MG/2 ML VIAL. ONE (11:32)
[2020-01-15] MEDS ORDERED: DEXAMETHASONE SOD PHOS 4 MG/ML VIAL ONE (11:32)
--- NOTE | 2020-01-15 11:51 | PDOC4 ---
Operative Note Operative Note Operative Note: Preoperative Diagnosis: Rectal cancer Postoperative Diagnosis: Same Procedure: Removal of Port-A-Cath Surgeon: Colin Anesthesia: General EBL: 10 mL Specimen: Port-A-Cath to pathology Drains: None Complications: None Indication: The patient is a 69-year-old male with a known history of rectal cancer. He is completed chemotherapy and the plan is for removal of the Port-A-Cath. The risks of surgery were discussed which include bleeding, infection, scar tissue, pain, anesthetic risk, potential need for additional surgery or procedure. He understands and would like to proceed. Description: The patient was taken to the operating room and placed supine in the operating table. General anesthesia was performed. The right chest was prepped with ChloraPrep and draped in a standard surgical manner. An incision was made at the site of the prior scar. Cautery dissection was carried down into the subcutaneous tissues. The capsule of the port was then opened. The attaching Prolene sutures were cut and the port was fully mobilized. With tract ion the remaining catheter was withdrawn without difficulty and the port was sent to pathology as a specimen. The catheter tract was oversewn with 3-0 Vicryl. A couple of small bleeding points were controlled with cautery. Hemostasis was then good. The skin was closed with 4-0 Monocryl. A sterile dressing was then applied. The patient tolerated the procedure well and was sent to the recovery room in stable condition. At the end of the case all counts were correct. BLANCA ADAMES MD Jan 15, 2020 11:51
--- NOTE | 2020-01-15 11:54 | DISCH ---
DISCHARGE INSTRUCTIONS Condition on Discharge Condition on Discharge: Stable Activity After Discharge Activity Instructions for Disc: Activity as tolerated Driving Instructions after Dis: Other, see below (no driving if taking pain meds) Diet after Discharge Diet after Discharge: Regular Liquid Texture: Thin Liquid Wound Incision Care Wound/Incision Care: Other, see below (keep dressing clean and dry X 72 hours, may then remove and shower) Follow-Up Follow up with: Dr Adames in 2 weeks in office, call for appt [phone] BLANCA ADAMES MD Jan 15, 2020 11:54
[2020-01-15] MEDS ORDERED: HYDROcodone/APAP 5/325MG 1 TAB TABLET PO ONE (12:00)
[2020-01-15] MEDS ORDERED: HYDR-3164 PO (12:37)
[2020-01-15 13:00] VITALS: BP 113/75
--- NOTE | 2020-01-16 18:08 | PATHOLOGY ---
[facility] Accession Number: [id number] . 01 Material submitted: . body - PORT A CATH . 01 Clinical history: . Rectal cancer . 02 Diagnosis: Port-A-Cath (Gross only). . (JPM:pastora; 01/16/2020) QMS 01/16/2020 1722 Local . 02 Electronically signed: . Watson Moss MD, Pathologist NPI- [id number] . 01 Gross description: . The specimen is received fresh, labeled "[place], Port-A-Cath" and consists of a purple pyramidal port measuring 2.6 x 2.5 cm with white rubber tubing protruding from one aspect measuring 23.6 cm in length and 0.3 cm in diameter. The port has the inscription "BARD [id number]". Gross photos are taken. (SDY; 01/15/2020) SYU/SYU 01/16/2020 1519 Local . 02 Pathologist provided ICD-10: Z45.2 . 02 CPT . 451912 Specimen Comment: A courtesy copy of this report has been sent to [phone], [phone] Specimen Comment: [id number] Specimen Comment: Report sent to / DR TIDWELL Performed at: 01 [facility] [address], [place], [place] [id number] MD Reji Freeman MD Phone: [phone] Performed at: 02 [facility] [address] [place], [place] [id number] MD Watson Moss MD Phone: [phone]
== END 2020-01-15 13:05 | disposition home or self-care (01) ==
LOC: SURG 09:47
PROVIDERS: ATTEND Surgery
DX: C20 Malignant neoplasm of rectum (principal); Z79.899 Other long term (current) drug therapy
CPT/HCPCS: 36590; 88300; A7015; J0690; J1100; J2405; J2704; J3010